=== PATIENT | female | born 1980 | race Hispanic/Latino ===

== ENCOUNTER 2016-10-13 19:22 | Emergency (ER) | payer SELFPAY ==
[2016-10-14] MEDS ORDERED: MOTRIN PO ONE (02:51)
[2016-10-14] MEDS ORDERED: CLEOCIN PO ONE (02:51)
[2016-10-14] MEDS ORDERED: NORCO 5/325 PO ONE ×2 (02:52→04:01)
[2016-10-14] MEDS ORDERED: CLEOCIN IM ONE (02:52)
[2016-10-14] MEDS ORDERED: XYLOCAINE 2% INFILTRATI ONE (02:52)
--- NOTE | 2016-10-14 03:57 | Emergency Department Report ---
HPI - General Chief Complaint: Skin/Abscess/Foreign Body Time Seen by Provider: 10/14/16 02:46 - HPI HPI: 36-year-old female past medical history recurrent abscesses presents with 2-3 days of abscess to right upper lip region. No intraoral involvement denies any fever or chills, no trouble speaking, denies any pus drainage. ED Past Medical Hx - Past Medical History Hx Renal Disease: Yes (Pyelonephritis, hydronephrosis, left kidney/ureteral stone) Hx Arthritis: Yes (hands) Hx Seizures: Yes Hx Psychiatric Treatment: Yes Hx Asthma: Yes (childhood asthma) Additional medical history: Prior kidney infections - Surgical History Additional Surgical History: kidney stent - Social History Smoking Status: Current Every Day Smoker Substance Use Type: Alcohol, Marijuana - Medications Home Medications: Home Medications Medication Instructions Recorded Confirmed Last Taken Type Ciprofloxacin HCl [Cipro] 500 mg PO Q12H #8 tab 10/04/14 Unknown Rx Lactobacillus Acidophil [Lactinex] 1 each PO TID #20 tablet 10/04/14 Unknown Rx oxyCODONE /ACETAMINOPHEN [Percocet 1 tab PO Q6HR PRN #10 tablet 10/04/14 Unknown Rx 5/325] Acetaminophen/Codeine [Tylenol #3] 1 tab PO Q6H PRN #15 tab 08/22/15 Unknown Rx Mupirocin [Bactroban 2%] 1 applic TP TID #1 tube 08/22/15 Unknown Rx Sulfamethoxazole/Trimethoprim 1 each PO BID #20 tablet 08/22/15 Unknown Rx [Bactrim DS TAB] Clindamycin [Clindamycin CAP] 300 mg PO Q6H #28 capsule 10/14/16 Unknown Rx HYDROcodone/APAP 5-325 [[place] 1 each PO Q6HR PRN #15 tablet 10/14/16 Unknown Rx 5/325] Ibuprofen [Motrin] 600 mg PO Q8H PRN #25 tablet 10/14/16 Unknown Rx Mupirocin [Bactroban 2% CREAM] 1 applicatio TP TID #1 cream 10/14/16 Unknown Rx ED Review of Systems ROS: Stated complaint: MOUTH PAIN Other details as noted in HPI Constitutional: denies: chills, fever Eyes: denies: eye pain, eye discharge, vision change ENT: denies: ear pain, throat pain Respiratory: denies: cough, shortness of breath, wheezing Cardiovascular: denies: chest pain, palpitations Endocrine: no symptoms reported Gastrointestinal: denies: abdominal pain, nausea, diarrhea Genitourinary: denies: urgency, dysuria, discharge Musculoskeletal: denies: back pain, joint swelling, arthralgia Skin: denies: rash, lesions Neurological: denies: headache, weakness, paresthesias Psychiatric: denies: anxiety, depression Hematological/Lymphatic: denies: easy bleeding, easy bruising Physical Exam - Physical Exam Vital Signs: Vital Signs 10/13/16 10/14/16 10/14/16 20:43 03:20 03:21 Temperature 98.7 F Pulse Rate 115 H Respiratory 18 18 18 Rate Blood Pressure 107/56 O2 Sat by Pulse 99 Oximetry General: General: appears uncomfortable. Oriented x 3, normal mood and affect . Ambulating without difficulty. Head: Normocephalic, atraumatic, no visible or palpable masses, depressions, or scaring. Eyes: Visual acuity intact, conjunctiva clear, sclera non-icteric, EOM intact, PERRL Ears: EACs clear, TMs translucent & mobile, ossicles nl appearance, hearing intact. Nose: No external lesions, mucosa non-inflamed, septum and turbinates normal Mouth: Small tiny clustered and honey colored blisters suggestive of impetigo and perioral region, small abscess above right lip blow nose next frenulum on right side. Mucous membranes moist, no mucosal lesions. Teeth/Gums: No obvious caries or periodontal disease. No gingival inflammation or significant resorption. Pharynx: Mucosa non-inflamed, no tonsillar hypertrophy or exudate Neck: Supple, without lesions, bruits, or adenopathy, thyroid non-enlarged and non-tender Heart: No cardiomegaly or thrills; regular rate and rhythm, no murmur or gallop Lungs: Clear to auscultation and percussion Abdomen: Bowel sounds normal, no tenderness, organomegaly, masses, or hernia Back: Spine normal without deformity or tenderness, no CVA tenderness Musculoskeletal: Normal gait and station. No misalignment, asymmetry, crepitation, defects, tenderness, masses, effusions, decreased range of motion, instability, atrophy or abnormal strength or tone in the head, neck, spine, ribs , pelvis or extremities. Neurologic: CN 2-12 normal. Sensation to pain, touch, and proprioception normal. DTRs normal in upper and lower extremities. No pathologic reflexes. ED Course Vital Signs 10/13/16 10/14/16 10/14/16 20:43 03:20 03:21 Temperature 98.7 F Pulse Rate 115 H Respiratory 18 18 18 Rate Blood Pressure 107/56 O2 Sat by Pulse 99 Oximetry - I & D Face Blade Size: 11 I & D Procedure: betadine prep Progress: To 3 mL of 2% lidocaine without epinephrine injected near abscess site above the right lip. Does not cross the vermilion border. Small vertical incision made next right frenulum, small amount of pus drained from site no gauze placed minimal bleeding. Painful to patient, minor relief of pressure. ED Medical Decision Making - Medical Decision Making A/P: Facial abscess 1-clindamycin IM times one dose, will give seven-day course 2-Motrin and [place] for pain 3-topical bactroban to impetigo lesions 4-patient advised to return to ED if swelling worsens and if it extends into any other part of the face, she developed severe fever or chills Critical care attestation.: If time is entered above; I have spent that time in minutes in the direct care of this critically ill patient, excluding procedure time. ED Disposition Clinical Impression: Impetigo, Facial abscess Disposition: DISCHARGED TO HOME OR SELFCARE Is pt being admited?: No Does the pt Need Aspirin: No Condition: Stable Instructions: Abscess (ED), Incision and Drainage (ED), Acute Wound Care (ED), Abscess Incision and Drainage (ED) Prescriptions: Mupirocin [Bactroban 2% CREAM] 1 applicatio TP TID #1 cream Clindamycin [Clindamycin CAP] 300 mg PO Q6H #28 capsule Ibuprofen [Motrin] 600 mg PO Q8H PRN #25 tablet PRN Reason: Pain HYDROcodone/APAP 5-325 [[place] 5/325] 1 each PO Q6HR PRN #15 tablet PRN Reason: Pain Referrals: PRIMARY CARE,MD [Primary Care Provider] - 3-5 Days [facility] [Outside] - 3-5 Days Forms: Work/School Release Form(ED), Accompanied Note Time of Disposition: 03:58
[2016-10-14] MEDS ORDERED: TRIPLE ANTIBIOTIC TP ONE ×3 (04:14→05:57)
[2016-10-14 05:06] VITALS: BP 116/74
== END 2016-10-14 05:06 | disposition home or self-care (01) ==
LOC: ED 19:22
DX: L02.01 Cutaneous abscess of face (principal); L01.00 Impetigo, unspecified; M19.90 Unspecified osteoarthritis, unspecified site; J45.909 Unspecified asthma, uncomplicated; F17.200 Nicotine dependence, unspecified, uncomplicated; F12.90 Cannabis use, unspecified, uncomplicated
CPT/HCPCS: 96372; A6250

== ENCOUNTER 2018-12-24 19:05 | Emergency (ER) | payer OTHER ==
[2018-12-24 19:36] VITALS: BP 143/93
--- NOTE | 2018-12-24 21:22 | XRay Report ---
PROCEDURE: XR FOOT 2V LT TECHNIQUE: Frontal and lateral views left foot HISTORY: Swollen left great toe with froeign body. COMPARISONS: None FINDINGS: There is no evidence of fracture or subluxation. The joint spaces are maintained. There is no evidence of radiopaque foreign body. IMPRESSION: 1. No evidence of fracture or subluxation. 2. No evidence of radiopaque foreign body. This document is electronically signed by Kaylin Monge MD., December 24 2018 09:20:16 PM ET
[2018-12-24] MEDS ORDERED: XYLOCAINE 2% INFILTRATI STA (23:42)
[2018-12-24] MEDS ORDERED: BOOSTRIX IM ONE (23:42)
--- NOTE | 2018-12-25 01:09 | Emergency Department Report ---
ED Lower Extremity HPI - General Chief Complaint: Extremity Injury, Lower Stated Complaint: FOREIGN BODY IN LEFT TOE Time Seen by Provider: 12/24/18 23:40 Source: patient Mode of arrival: Ambulatory Limitations: No Limitations - History of Present Illness MD Complaint: foot injury -: days(s) (1) Injury: Toes: Left Type of Injury: puncture wound (accidentally stepped on a toothpick while at home, but it broke off in the toe presents emerge department for removal. Complains of pain and swelling and occasional) Severity: mild Improves With: nothing Worsens With: movement, palpation Context: walking Associated Symptoms: able to partially bear weight - Related Data Previous Rx's Medication Instructions Recorded Last Taken Type Ciprofloxacin HCl [Cipro] 500 mg PO Q12H #8 tab 10/04/14 Unknown Rx Lactobacillus Acidophil [Lactinex] 1 each PO TID #20 tablet 10/04/14 Unknown Rx oxyCODONE /ACETAMINOPHEN [Percocet 1 tab PO Q6HR PRN #10 tablet 10/04/14 Unknown Rx 5/325] Acetaminophen/Codeine [Tylenol #3] 1 tab PO Q6H PRN #15 tab 08/22/15 Unknown Rx Mupirocin [Bactroban 2%] 1 applic TP TID #1 tube 08/22/15 Unknown Rx Sulfamethoxazole/Trimethoprim 1 each PO BID #20 tablet 08/22/15 Unknown Rx [Bactrim DS TAB] Clindamycin [Clindamycin CAP] 300 mg PO Q6H #28 capsule 10/14/16 Unknown Rx HYDROcodone/APAP 5-325 [[place] 1 each PO Q6HR PRN #15 tablet 10/14/16 Unknown Rx 5/325] Ibuprofen [Motrin] 600 mg PO Q8H PRN #25 tablet 10/14/16 Unknown Rx Mupirocin [Bactroban 2% CREAM] 1 applicatio TP TID #1 cream 10/14/16 Unknown Rx Chlorhexidine Gluconate 5 ml TP BID #240 liquid 12/25/18 Unknown Rx [Antiseptic Skin Cleanser] Sulfamethoxazole/Trimethoprim 1 each PO BID #14 tablet 12/25/18 Unknown Rx [Bactrim DS TAB] Allergies Allergy/AdvReac Type Severity Reaction Status Date / Time No Known Allergies Allergy Unverified 09/29/14 19:48 ED Review of Systems ROS: Stated complaint: FOREIGN BODY IN LEFT TOE Other details as noted in HPI Constitutional: denies: chills, fever Eyes: denies: eye pain, eye discharge, vision change ENT: denies: ear pain, throat pain Respiratory: denies: cough, shortness of breath, wheezing Cardiovascular: denies: chest pain, palpitations Endocrine: no symptoms reported Gastrointestinal: denies: abdominal pain, nausea, diarrhea Genitourinary: denies: urgency, dysuria, discharge Musculoskeletal: denies: back pain, joint swelling, arthralgia Skin: change in color. denies: rash, lesions Neurological: denies: headache, weakness, paresthesias Psychiatric: denies: anxiety, depression Hematological/Lymphatic: denies: easy bleeding, easy bruising ED Past Medical Hx - Past Medical History Hx Renal Disease: Yes (Pyelonephritis, hydronephrosis, left kidney/ureteral stone) Hx Arthritis: Yes (hands) Hx Seizures: Yes Hx Psychiatric Treatment: Yes Hx Asthma: Yes (childhood asthma) Additional medical history: Prior kidney infections - Surgical History Additional Surgical History: kidney stent - Social History Smoking Status: Current Every Day Smoker Substance Use Type: Marijuana - Medications Home Medications: Home Medications Medication Instructions Recorded Confirmed Last Taken Type Ciprofloxacin HCl [Cipro] 500 mg PO Q12H #8 tab 10/04/14 Unknown Rx Lactobacillus Acidophil [Lactinex] 1 each PO TID #20 tablet 10/04/14 Unknown Rx oxyCODONE /ACETAMINOPHEN [Percocet 1 tab PO Q6HR PRN #10 tablet 10/04/14 Unknown Rx 5/325] Acetaminophen/Codeine [Tylenol #3] 1 tab PO Q6H PRN #15 tab 08/22/15 Unknown Rx Mupirocin [Bactroban 2%] 1 applic TP TID #1 tube 08/22/15 Unknown Rx Sulfamethoxazole/Trimethoprim 1 each PO BID #20 tablet 08/22/15 Unknown Rx [Bactrim DS TAB] Clindamycin [Clindamycin CAP] 300 mg PO Q6H #28 capsule 10/14/16 Unknown Rx HYDROcodone/APAP 5-325 [[place] 1 each PO Q6HR PRN #15 tablet 10/14/16 Unknown Rx 5/325] Ibuprofen [Motrin] 600 mg PO Q8H PRN #25 tablet 10/14/16 Unknown Rx Mupirocin [Bactroban 2% CREAM] 1 applicatio TP TID #1 cream 10/14/16 Unknown Rx Chlorhexidine Gluconate 5 ml TP BID #240 liquid 12/25/18 Unknown Rx [Antiseptic Skin Cleanser] Sulfamethoxazole/Trimethoprim 1 each PO BID #14 tablet 12/25/18 Unknown Rx [Bactrim DS TAB] ED Physical Exam - General Limitations: No Limitations General appearance: alert, in no apparent distress - Head Head exam: Present: atraumatic, normocephalic - Eye Eye exam: Present: normal appearance, PERRL, EOMI Pupils: Present: normal accommodation - ENT ENT exam: Present: normal exam, normal orophraynx, mucous membranes moist - Neck Neck exam: Present: normal inspection, full ROM. Absent: tenderness, lymphadenopathy - Respiratory Respiratory exam: Present: normal lung sounds bilaterally. Absent: respiratory distress, wheezes, rales, chest wall tenderness, accessory muscle use, decreased breath sounds - Cardiovascular Cardiovascular Exam: Present: regular rate, normal rhythm. Absent: systolic murmur, diastolic murmur, rubs, gallop - GI/Abdominal GI/Abdominal exam: Present: soft, normal bowel sounds. Absent: distended, tenderness, hyperactive bowel sounds, hypoactive bowel sounds, organomegaly, bruit - Extremities Exam Extremities exam: Present: normal inspection, full ROM, normal capillary refill. Absent: pedal edema - Back Exam Back exam: Present: normal inspection, full ROM, CVA tenderness (R), CVA tenderness (L). Absent: paraspinal tenderness - Neurological Exam Neurological exam: Present: alert, oriented X3, CN II-XII intact, normal gait. Absent: abnormal gait, motor sensory deficit, reflexes normal - Psychiatric Psychiatric exam: Present: normal affect, normal mood. Absent: depressed, agitated, anxious, flat affect, manic - Skin Skin exam: Present: warm, dry, intact, normal color. Absent: rash ED Course Vital Signs 12/24/18 12/24/18 19:32 19:34 Temperature 98.2 F 98.2 F Pulse Rate 89 87 Respiratory 18 18 Rate Blood Pressure 143/93 O2 Sat by Pulse 99 100 Oximetry - Procedure Description Procedures done: Prepped and draped in sterile fashion anesthesia was achieved with 2% lidocaine with no epinephrine 3 and males a 15 blade was used to make a 1 less than 1 cm incision over the believe insertion site [place] because was used to remove a toothpick that was 1.5 cm in length and intact. No poste xtraction debris. Critical care attestation.: If time is entered above; I have spent that time in minutes in the direct care of this critically ill patient, excluding procedure time. ED Disposition Clinical Impression: Foreign body foot/toe Disposition: - TO HOME OR SELFCARE Is pt being admited?: No Does the pt Need Aspirin: No Condition: Stable Instructions: Acute Wound Care (ED), Puncture Wound (ED), Soft Tissue Foreign Body (ED) Prescriptions: Chlorhexidine Gluconate [Antiseptic Skin Cleanser] 5 ml TP BID #240 liquid Sulfamethoxazole/Trimethoprim [Bactrim DS TAB] 1 each PO BID #14 tablet Referrals: NIDIA PALOMARES MD [Primary Care Provider] - 3-5 Days
[2018-12-25] MEDS ORDERED: IBUPROFEN ONE (01:16)
[2018-12-25] MEDS ORDERED: IBUPROFEN PO ONE (01:16)
== END 2018-12-25 01:29 | disposition home or self-care (01) ==
LOC: ED 19:05
DX: S90.455A Superficial foreign body, left lesser toe(s), initial encounter (principal); J45.909 Unspecified asthma, uncomplicated; F17.200 Nicotine dependence, unspecified, uncomplicated; W45.8XXA Other foreign body or object entering through skin, initial encounter; Y93.89 Activity, other specified; Y92.89 Other specified places as the place of occurrence of the external cause; Y99.8 Other external cause status
CPT/HCPCS: 90471; 90715

== ENCOUNTER 2020-04-04 14:16 | Inpatient (IN) | payer OTHER ==
[2020-04-04] MEDS ORDERED: DEXTROSE 50% IN WATER (25GM) 50 ML SYRINGE IV ONE ×3 (14:20→14:46)
[2020-04-04] MEDS ORDERED: ETOMIDATE 20 MG/10 ML INJ IV ONE (14:29)
[2020-04-04] MEDS ORDERED: ROCURONIUM 50 MG/5 ML INJ IV ONE ×2 (14:30→14:34)
[2020-04-04] MEDS ORDERED: SODIUM CHLORIDE 0.9% 1000 ML 1,000 ML ONE ×2 (14:33→20:20)
[2020-04-04] MEDS ORDERED: LIP THERAPY VASELINE TP PRN (14:43)
[2020-04-04] MEDS ORDERED: MINERAL OIL/PETROLATUM, WHITE OPHTH OINT 3.5 GM OU PRN (14:43)
[2020-04-04] MEDS ORDERED: SODIUM CHLORIDE 0.9% 1000 ML 1,000 ML IV ONE ×3 (14:47→16:20)
[2020-04-04] MEDS ORDERED: levETIRAcetam 1000 MG/NS 0.75% 1,000 MG/100 ML BAG IV ONE (14:47)
--- NOTE | 2020-04-04 14:50 | Emergency Department Report ---
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 improvement after ventilation. Patient has elevated ammonia level and UDS positive for methamphetamine. CT head and cervical spine unremarkable. Patient has a lactic acidosis and was empirically treated with Zosyn and 3 L of normal saline (greater than 30ml/kg bolus weight was not in during initial orders therefore sepsis protocol order for IVF not used initially). Pleural effusions noted on chest x-ray as per radiology report. Patient presented with hypothermia and hypoglycemia. Active warming initiated and patient received 2 Amps of D50 on arrival. Repeat Accu-Chek revealed glucose within normal range. Patient will need to be admitted to the ICU for continued care. Critical Care Time: Yes Critical care time in (mins) excluding proc time.: 35 Critical care attestation.: If time is entered above; I have spent that time in minutes in the direct care of this critically ill patient, excluding procedure time. ED Disposition Clinical Impression: Altered mental status, Serum ammonia increased, Methamphetamine abuse, Respiratory acidosis, Endotracheally intubated, Seizure disorder, Hypothermia, Hypoglycemia Disposition: OP ADMIT IP TO THIS HOSP Is pt being admited?: Yes Condition: Stable Time of Disposition: 17:25 (Dr Hernandez/hosp)
--- NOTE | 2020-04-04 15:10 | Cat Scan Report ---
CT head without contrast INDICATION : MAIN. Acute headache TECHNIQUE: Axial imaging performed from the skull apex through the skull base without the use of con trast. All CT scans at this location are performed using CT dose reduction for ALARA by means of aut omated exposure control. COMPARISON: None FINDINGS: Parenchyma: No acute intracranial hemorrhage or parenchymal abnormality. Ventricles: Ventricles are normal in size and appear symmetric. Soft tissues: Soft tissues including the orbits appear normal. Bones: No acute osseous abnormality. Sinuses: Sinuses and mastoid air cells are clear. IMPRESSION: No acute abnormality. Signer Name: Raúl Wheeler MD Signed: 04/04/2020 3:05 PM Workstation Name: [id number]
[2020-04-04 15:30] LABS: Bacteria,Urine 1+ /HPF (Negative); Bilirubin,Urine NEG (Negative); Blood,Urine SM (Negative); Color,Urine Straw (Yellow); Mucus,Urine FEW /HPF; Protein,Urine <15 mg/dL mg/dL (Negative); Urobilinogen,Urine < 2.0 mg/dL (<2.0)
[2020-04-04 15:34] LABS: Benzodiazepines Screen,Urine PRESUMPTIVE NEGATIVE; Cannabinoid Screen,Urine PRESUMPTIVE NEGATIVE; Cocaine Screen,Urine PRESUMPTIVE NEGATIVE; Methadone Screen,Urine PRESUMPTIVE NEGATIVE; Opiate Screen,Urine PRESUMPTIVE NEGATIVE
--- NOTE | 2020-04-04 15:41 | Cat Scan Report ---
CT cervical spine wo con INDICATION / CLINICAL INFORMATION: 40 years Female; ams, found down on floor. TECHNIQUE: Axial CT images of the cervical spine were obtained. Sagittal and coronal reformatted images were pr oduced. All CT scans at this location are performed using CT dose reduction for ALARA by means of aut omated exposure control. COMPARISON: None available. FINDINGS: POST-SURGICAL CHANGES: The patient is intubated. There are secretions in the nasopharynx. ALIGNMENT: Normal cervical lordosis seen without significant scoliosis. VERTEBRAE: No signs of fracture. Vertebral bodies are grossly normal in height throughout. There is mild foraminal narrowing on the right at C5-6 from uncinate hypertrophy. INTRAVERTEBRAL DISCS:Disc spaces are fairly well-maintained throughout without significant canal sten osis. PARASPINAL SOFT TISSUES: No significant abnormality. ADDITIONAL FINDINGS: None. IMPRESSION: 1. No signs of acute bony trauma to the cervical spine. Signer Name: Joe Estrada MD, III Signed: 04/04/2020 3:36 PM Workstation Name: [id number]
[2020-04-04 15:47] LABS: Amphetamine Screen,Urine PRESUMPTIVE POSITIVE
[2020-04-04 15:52] LABS: Basophils # (Auto) 0.1 K/mm3 (0.0-0.1); Basophils % (Auto) 0.4 % (0.0-1.8); Eosinophils % (Auto) 0.1 % (0.0-4.3); Hematocrit 39.1 % (30.3-42.9); Hemoglobin 12.8 gm/dl (10.1-14.3); Lymphocytes # (Auto) 0.6 K/mm3 (1.2-5.4); Lymphocytes % (Auto) 4.5 % (13.4-35.0); Mean Corpuscular HGB Conc 33 % (30-34); Mean Corpuscular Volume 87 fl (79-97); Monocytes # (Auto) 0.8 K/mm3 (0.0-0.8); Monocytes % (Auto) 5.4 % (0.0-7.3); Platelet Count 218 K/mm3 (140-440)
[2020-04-04 16:01] LABS: Creatine Kinase MB 9.8 ng/mL (0.0-4.0)
[2020-04-04 16:09] LABS: Albumin 3.8 g/dL (3.9-5); Calcium 8.3 mg/dL (8.4-10.2)
[2020-04-04 16:12] LABS: Free T4 (Free Thyroxine) 1.01 ng/dL (0.76-1.46)
[2020-04-04 16:14] LABS: INR 1.05 (0.87-1.13)
[2020-04-04 16:24] LABS: ABG Base Excess -3.6 mmol/L (-2.0-3.0); ABG HCO3 23.1 mmol/L (20.0-26.0); ABG Methemoglobin 0.6 % (0.0-1.5); ABG Oxygen Saturation 96.6 % (95.0-99.0); ABG PCO2 48.6 mm Hg; ABG PH 7.295 pH Units (7.350-7.450); ABG PO2 87.3 mm Hg (80.0-90.0)
--- NOTE | 2020-04-04 16:37 | XRay Report ---
CHEST 1 VIEW 04/04/2020 3:28 PM INDICATION / CLINICAL INFORMATION: ETT placement. COMPARISON: None FINDINGS: SUPPORT DEVICES: ET tube has tip 3 cm above hamlet HEART / MEDIASTINUM: No significant abnormality. LUNGS / PLEURA: Small bilateral layering pleural effusions. No pneumothorax. ADDITIONAL FINDINGS: No significant additional findings. IMPRESSION: 1. Small bilateral pleural effusions Signer Name: John Cordon MD Signed: 04/04/2020 4:33 PM Workstation Name: [id number]
[2020-04-04] MEDS ORDERED: PIPERACIL/TAZOBACTA 4.5/NS 100 4.5 GM/100 ML VIAL IV ONE (16:41)
--- NOTE | 2020-04-04 17:14 | History and Physical Report ---
History of Present Illness Chief complaint: Unresponsive History of present illness: 40 YO Female with CKD, Seizures, Asthma, Psychosis NOS, Nicotine Dependence presents to ED for evaluation. Patient is intubated and on ventilatory support at the time of my evaluation and is unable to provide history. Patient history taken from ED staff, EMS, and patient boyfriend who was on scene at the time. As per staff the patient was found by her boyfriend lying on the floor unresponsive. EMS was notified and upon arrival the patient was found to be in distress and subsequently transported to [facility] for further evaluation and care. Patient seen and evaluated in the emergency department. Lab and imaging studies reviewed. Patient was found to be hypoxemic and unable to protect her airway with clinical symptoms suggestive of acute respiratory failure and the patient was subsequently intubated and placed on ventilatory support. The patient was also found to have sepsis with blood pressure of 73/48, acute kidney injury, metabolic acidosis, as well as metabolic encephalopathy. The patient was initiated on sepsis protocol and admitted to ICU due to high risk for cardiopulmonary decompensation. Critical care team consulted in ED. Prior admission on 09/30/2014 reviewed. All medication listed at time of admission has been reconciled. No further history is obtainable. Past History Past Medical History: other (See HPI) Past Surgical History: Other (Renal stent placement) Social history: , smoking. denies: alcohol abuse, prescription drug abuse Family history: no significant family history, other (Reviewed) Medications and Allergies Allergies Allergy/AdvReac Type Severity Reaction Status Date / Time No Known Allergies Allergy Unverified 09/29/14 19:48 Home Medications Medication Instructions Recorded Confirmed Last Taken Type Ciprofloxacin HCl [Cipro] 500 mg PO Q12H #8 tab 10/04/14 Unknown Rx Lactobacillus Acidophil [Lactinex] 1 each PO TID #20 tablet 10/04/14 Unknown Rx oxyCODONE /ACETAMINOPHEN [Percocet 1 tab PO Q6HR PRN #10 tablet 10/04/14 Unknown Rx 5/325] Acetaminophen/Codeine [Tylenol #3] 1 tab PO Q6H PRN #15 tab 08/22/15 Unknown Rx Mupirocin [Bactroban 2%] 1 applic TP TID #1 tube 08/22/15 Unknown Rx Sulfamethoxazole/Trimethoprim 1 each PO BID #20 tablet 08/22/15 Unknown Rx [Bactrim DS TAB] Clindamycin [Clindamycin CAP] 300 mg PO Q6H #28 capsule 10/14/16 Unknown Rx HYDROcodone/APAP 5-325 [[place] 1 each PO Q6HR PRN #15 tablet 10/14/16 Unknown Rx 5/325] Ibuprofen [Motrin] 600 mg PO Q8H PRN #25 tablet 10/14/16 Unknown Rx Mupirocin [Bactroban 2% CREAM] 1 applicatio TP TID #1 cream 10/14/16 Unknown Rx Chlorhexidine Gluconate 5 ml TP BID #240 liquid 12/25/18 Unknown Rx [Antiseptic Skin Cleanser] Ketorolac [Toradol] 10 mg PO Q6H PRN #15 tablet 12/25/18 Unknown Rx Sulfamethoxazole/Trimethoprim 1 each PO BID #14 tablet 12/25/18 Unknown Rx [Bactrim DS TAB] Active Meds: Active Medications Hydrophilic Ointment (Vaseline Lip Therapy) 1 applic TP Q2HR PRN PRN Reason: Dry Lips Propofol (Diprivan 10 Mg/Ml) 1,000 mg in 100 mls @ 0 mls/hr IV TITR LEOBARDO; Protocol Sodium Chloride (Nacl 0.9% 1000 Ml) 1,000 mls @ 999 mls/hr IV BOLUS ONE Stop: 04/04/20 17:20 Last Admin: 04/04/20 16:45 Dose: 999 mls/hr Documented by: Sodium Chloride (Nacl 0.9% 1000 Ml) 1,000 mls @ 999 mls/hr IV BOLUS ONE Stop: 04/04/20 17:20 Last Admin: 04/04/20 16:46 Dose: 999 mls/hr Documented by: Multi-Ingred Cream/Lotion/Oil/Oint (Artificial Tears Ophth Oint) 1 applic OU Q4HR PRN PRN Reason: Dry Eye(s) Review of Systems ROS unobtainable: due to endotracheal tube, due to mental status Exam - Constitutional Vitals: Temp Pulse Resp BP Pulse Ox 89.0 F L 65 20 120/87 100 04/04/20 14:48 04/04/20 16:46 04/04/20 16:46 04/04/20 16:46 04/04/20 16:46 General appearance: Present: severe distress - EENT Eyes: Present: miosis - Respiratory Respiratory effort: labored, accessory muscle use, stridor Respiratory: bilateral: diminished, rhonchi - Cardiovascular Heart Sounds: Present: S1 & S2. Absent: rub, click Peripheral Pulses: abnormal (Capillary refill greater than 3.5 seconds) - Abdominal General gastrointestinal: Present: soft, non-tender, non-distended, normal bowel sounds Female genitourinary: Present: normal - Integumentary Integumentary: Present: clear, dry, clammy, decreased turgor - Musculoskeletal Musculoskeletal: generalized weakness - Psychiatric Psychiatric: no appropriate mood/affect, no intact judgment & insight, no memory intact - Neurologic Neurologic: no focal deficits, moves all extremities, no gait normal HEART Score - HEART Score Troponin: Troponin T 0.021 ng/mL (0.00-0.029) 04/04/20 15:34 Results - Labs CBC & Chem 7: 04/04/20 15:34 04/04/20 15:34 Labs: Abnormal lab results 04/04/20 04/04/20 04/04/20 Range/Units 15:34 15:34 15:34 WBC 14.2 H (4.5-11.0) K/mm3 RDW 18.0 H (13.2-15.2) % Lymph % (Auto) 4.5 L (13.4-35.0) % Lymph # 0.6 L (1.2-5.4) K/mm3 Seg Neutrophils % 89.6 H (40.0-70.0) % Seg Neutrophils # 12.7 H (1.8-7.7) K/mm3 ABG pH (7.350-7.450) pH Units ABG Base Excess (-2.0-3.0) mmol/L VBG pH (7.320-7.420) Oxyhemoglobin (95.0-99.0) % Carbon Dioxide 20 L (22-30) mmol/L Creatinine 1.4 H (0.7-1.2) mg/dL Glucose 186 H (65-100) mg/dL POC Glucose (70-105) Lactic Acid 5.90 H* (0.7-2.0) mmol/L Calcium 8.3 L (8.4-10.2) mg/dL Ammonia (25-60) umol/L Total Creatine Kinase (30-135) units/L CK-MB (CK-2) (0.0-4.0) ng/mL Albumin 3.8 L (3.9-5) g/dL Salicylates (2.8-20.0) mg/dL Acetaminophen (10.0-30.0) ug/mL Phenytoin (10.0-20.0) ug/mL Valproic Acid (50-100) ug/mL 04/04/20 04/04/20 04/04/20 Range/Units 15:34 15:34 15:34 WBC (4.5-11.0) K/mm3 RDW (13.2-15.2) % Lymph % (Auto) (13.4-35.0) % Lymph # (1.2-5.4) K/mm3 Seg Neutrophils % (40.0-70.0) % Seg Neutrophils # (1.8-7.7) K/mm3 ABG pH (7.350-7.450) pH Units ABG Base Excess (-2.0-3.0) mmol/L VBG pH 7.135 L* (7.320-7.420) Oxyhemoglobin (95.0-99.0) % Carbon Dioxide (22-30) mmol/L Creatinine (0.7-1.2) mg/dL Glucose (65-100) mg/dL POC Glucose (70-105) Lactic Acid (0.7-2.0) mmol/L Calcium (8.4-10.2) mg/dL Ammonia 142.0 H (25-60) umol/L Total Creatine Kinase 273 H (30-135) units/L CK-MB (CK-2) 9.8 H (0.0-4.0) ng/mL Albumin (3.9-5) g/dL Salicylates (2.8-20.0) mg/dL Acetaminophen (10.0-30.0) ug/mL Phenytoin (10.0-20.0) ug/mL Valproic Acid (50-100) ug/mL 04/04/20 04/04/20 04/04/20 Range/Units 15:34 15:34 16:10 WBC (4.5-11.0) K/mm3 RDW (13.2-15.2) % Lymph % (Auto) (13.4-35.0) % Lymph # (1.2-5.4) K/mm3 Seg Neutrophils % (40.0-70.0) % Seg Neutrophils # (1.8-7.7) K/mm3 ABG pH 7.295 L (7.350-7.450) pH Units ABG Base Excess -3.6 L (-2.0-3.0) mmol/L VBG pH (7.320-7.420) Oxyhemoglobin 92.7 L (95.0-99.0) % Carbon Dioxide (22-30) mmol/L Creatinine (0.7-1.2) mg/dL Glucose (65-100) mg/dL POC Glucose (70-105) Lactic Acid (0.7-2.0) mmol/L Calcium (8.4-10.2) mg/dL Ammonia (25-60) umol/L Total Creatine Kinase (30-135) units/L CK-MB (CK-2) (0.0-4.0) ng/mL Albumin (3.9-5) g/dL Salicylates < 0.3 L (2.8-20.0) mg/dL Acetaminophen < 5.0 L (10.0-30.0) ug/mL Phenytoin 0.8 L (10.0-20.0) ug/mL Valproic Acid < 2.8 L (50-100) ug/mL 04/04/20 Range/Units 16:13 WBC (4.5-11.0) K/mm3 RDW (13.2-15.2) % Lymph % (Auto) (13.4-35.0) % Lymph # (1.2-5.4) K/mm3 Seg Neutrophils % (40.0-70.0) % Seg Neutrophils # (1.8-7.7) K/mm3 ABG pH (7.350-7.450) pH Units ABG Base Excess (-2.0-3.0) mmol/L VBG pH (7.320-7.420) Oxyhemoglobin (95.0-99.0) % Carbon Dioxide (22-30) mmol/L Creatinine (0.7-1.2) mg/dL Glucose (65-100) mg/dL POC Glucose 125 H (70-105) Lactic Acid (0.7-2.0) mmol/L Calcium (8.4-10.2) mg/dL Ammonia (25-60) umol/L Total Creatine Kinase (30-135) units/L CK-MB (CK-2) (0.0-4.0) ng/mL Albumin (3.9-5) g/dL Salicylates (2.8-20.0) mg/dL Acetaminophen (10.0-30.0) ug/mL Phenytoin (10.0-20.0) ug/mL Valproic Acid (50-100) ug/mL Assessment and Plan - Patient Problems (1) Sepsis Current Visit: Yes Status: Acute Plan to address problem: Sepsis protocol: CBC, CMP, urinalysis, chest x-ray, IV fluid resuscitation therapy, IV antibiotic therapy, maintain mean arterial blood pressure greater than or equal to 65, monitor urine output every shift, supportive care, critical care team consulted in ED. The high probability of a clinically significant, sudden or life threatening deterioration of the [cardiac, pulmonary, renal, neuro, ID] system(s) required my full and direct attention, intervention and personal management. The aggregate critical care time was [95] minutes. This time is in addition to time spent performing reported procedures but includes the following: [x] Data Review and interpretation [x] Patient assessment and monitoring of vital signs [x] Documentation [x] Medication orders and management (2) Acute respiratory failure Current Visit: Yes Status: Acute Qualifiers: Respiratory failure complication: hypoxia Qualified Code(s): J96.01 - Acute respiratory failure with hypoxia Plan to address problem: Patient intubated and on vent support. Chest x-ray, ABG, pulse oximetry, nebulizer therapy, wean vent as tolerated, daily spontaneous breathing trial, sedation holiday, critical care team consulted in ED (3) Acute kidney injury (RON) with acute tubular necrosis (ATN) Current Visit: Yes Status: Acute Plan to address problem: IV fluid resuscitation therapy, monitor urine output every shift, supportive care. (4) Nicotine dependence Current Visit: Yes Status: Acute Qualifiers: Nicotine product type: cigarettes Substance use status: in withdrawal Qualified Code(s): F17.213 - Nicotine dependence, cigarettes, with withdrawal Plan to address problem: Smoking cessation, supportive care. (5) Methamphetamine abuse Current Visit: Yes Status: Acute Plan to address problem: Chronic, supportive care, outpatient drug dependence counseling. (6) Seizure disorder Current Visit: Yes Status: Acute Plan to address problem: Seizure precautions, supportive care, continue antiepileptic therapy. (7) Metabolic acidosis Current Visit: Yes Status: Acute Plan to address problem: BMP, supportive care, treat sepsis, IV bicarbonate therapy, repeat BMP in a.m. (8) DVT prophylaxis Current Visit: No Status: Acute Plan to address problem: SCD to bilateral lower extremities while in bed, prophylactic heparin.
[2020-04-04] MEDS ORDERED: SODIUM CHLORIDE 0.9% 1000 ML IV SOLN IV ONE (17:30)
[2020-04-04] MEDS ORDERED: SODIUM BICARB 8.4% 50 MEQ/50 ML SYRINGE IV ONE (19:00)
[2020-04-04] MEDS ORDERED: MUPIROCIN TP SCH (20:00)
[2020-04-04] MEDS ORDERED: fentaNYL DRIP Premix 2,000 MCG/100 ML BAG IV ONE (20:16)
[2020-04-04] MEDS ORDERED: fentaNYL 100 MCG/2 ML INJ IV PRN (20:26)
[2020-04-04] MEDS: fentaNYL DRIP Premix 2,000 MCG/100 ML BAG IV SCH (20:30)
[2020-04-04] MEDS: LACTINEX CHEW TAB PO SCH (21:22)
[2020-04-04] MEDS: HEPARIN 5,000 UNIT/1 ML VIAL SUB-Q SCH (21:30)
[2020-04-04] MEDS ORDERED: CHLORHEXIDINE GLUCONATE TP SCH (22:00)
[2020-04-05] MEDS: fentaNYL DRIP Premix 2,000 MCG/100 ML BAG IV SCH ×2 (00:54→07:29)
--- NOTE | 2020-04-05 04:59 | XRay Report ---
CHEST 1 VIEW INDICATION: follow up respiratory failure COMPARISON: One day prior. FINDINGS: Support devices: Endotracheal tube remains in good position. Heart: Stable. Lungs/Pleura: Bibasilar disease persists but has improved. No new disease. IMPRESSION: 1. Slight improvement. Signer Name: Cal Tillman MD Signed: 04/05/2020 4:55 AM Workstation Name: [id number]
[2020-04-05 05:05] LABS: ABG Base Excess -3.4 mmol/L (-2.0-3.0); ABG HCO3 21.3 mmol/L (20.0-26.0); ABG Methemoglobin 0.6 % (0.0-1.5); ABG Oxygen Saturation 98.4 % (95.0-99.0); ABG PH 7.379 pH Units (7.350-7.450); ABG PO2 126.6 mm Hg (80.0-90.0)
[2020-04-05] MEDS ORDERED: D5W/0.9% NACL 1,000 ML IV SCH (10:00)
[2020-04-05] MEDS: FAMOTIDINE 20 MG/2 ML INJ IV SCH ×2 (10:01→22:51)
[2020-04-05] MEDS: HEPARIN 5,000 UNIT/1 ML VIAL SUB-Q SCH ×2 (10:01→22:51)
[2020-04-05] MEDS: LACTINEX CHEW TAB PO SCH ×3 (10:36→22:50)
[2020-04-05 10:53] LABS: Hematocrit 36.1 % (30.3-42.9); Hemoglobin 11.9 gm/dl (10.1-14.3); Mean Corpuscular HGB Conc 33 % (30-34); Mean Corpuscular Volume 84 fl (79-97); Platelet Count 217 K/mm3 (140-440); Red Blood Count 4.31 M/mm3 (3.65-5.03); Red Cell Distribution Width 17.1 % (13.2-15.2)
[2020-04-05 11:14] LABS: BUN/Creatinine Ratio 19; Blood Urea Nitrogen 17 mg/dL (7-17); Hemolysis Index 10
[2020-04-05] MEDS ORDERED: PNEUMOCOCCAL 23 Valent 0.5 ML VIAL IM ONE (12:00)
[2020-04-05] MEDS ORDERED: SIMPLE SYRUP 15 ML FEEDTUBE PRN ×2 (12:32)
[2020-04-05] MEDS ORDERED: LIPASE 10,500/PROTEASE 25,000/AMYLASE 43,750 (UNITS) DR CAP FEEDTUBE PRN (12:32)
[2020-04-05] MEDS ORDERED: SODIUM BICARBONATE 325 MG TAB FEEDTUBE PRN (12:32)
--- NOTE | 2020-04-05 12:35 | Consultation ---
History of Present Illness Consult date: 04/05/20 Requesting physician: FAIZA DICKINSON Reason for consult: other (Critical care management) History of present illness: 40 YO Female with CKD, Seizures, Asthma, Psychosis NOS, Nicotine Dependence presents to ED for evaluation. Patient is intubated and on ventilatory support at the time of my evaluation and is unable to provide history. As per medical records the patient was found by her boyfriend lying on the floor unresponsive. EMS was notified and upon arrival the patient was found to be in distress and subsequently transported to [facility] for further evaluation and care. Patient seen and evaluated in the emergency department. Lab and imaging studies reviewed. Patient was found to be hypoxemic and unable to protect her airway with clinical symptoms suggestive of acute respiratory failure and the patient was subsequently intubated and placed on ventilatory support. The patient was also found to have sepsis with blood pressure of 73/48, acute kidney injury, metabolic acidosis, as well as metabolic encephalopathy. The patient was initiated on sepsis protocol and admitted to ICU due to high risk for cardiopulmonary decompensation. I was consulted fro critical care management. Thank you Past History Past Medical History: other (See HPI) Past Surgical History: Other (Renal stent placement) Social history: , smoking. denies: alcohol abuse, prescription drug abuse Family history: no significant family history, other (Reviewed) Medications and Allergies Allergies Allergy/AdvReac Type Severity Reaction Status Date / Time No Known Allergies Allergy Unverified 09/29/14 19:48 Home Medications Medication Instructions Recorded Confirmed Last Taken Type No Known Home Medications [No 04/05/20 04/05/20 Unknown History Reported Home Medications] Active Meds: Active Medications Famotidine (Pepcid) 20 mg IV BID LEOBARDO Last Admin: 04/05/20 10:01 Dose: 20 mg Documented by: Fentanyl (Sublimaze) 50 mcg IV Q10MIN PRN PRN Reason: ANALGESIA Heparin Sodium (Porcine) (Heparin) 5,000 unit SUB-Q Q12HR [facility] Last Admin: 04/05/20 10:01 Dose: 5,000 unit Documented by: Hydrophilic Ointment (Vaseline Lip Therapy) 1 applic TP Q2HR PRN PRN Reason: Dry Lips Propofol (Diprivan 10 Mg/Ml) 1,000 mg in 100 mls @ 2.517 mls/hr IV TITR LEOBARDO; Protocol Last Titration: 04/05/20 07:45 Dose: 0 mcg/kg/min, 0 mls/hr Documented by: Levofloxacin/Dextrose (Levaquin 750mg/150ml) 750 mg in 150 mls @ 100 mls/hr IV Q24H LEOBARDO; Protocol Last Admin: 04/04/20 21:28 Dose: 100 mls/hr Documented by: Fentanyl Citrate (Fentanyl Drip Premix) 2,000 mcg in 100 mls @ 4.196 mls/hr IV TITR LEOBARDO; Protocol Last Titration: 04/05/20 08:30 Dose: 0 mcg/kg/hr, 0 mls/hr Documented by: Dextrose/Sodium Chloride (D5ns) 1,000 mls @ 100 mls/hr IV DIRECT LEOBARDO Last Admin: 04/05/20 10:02 Dose: 100 mls/hr Documented by: Lactobacillus Acidophilus (Lactinex) 1 each PO TID LEOBARDO Last Admin: 04/05/20 10:36 Dose: Not Given Documented by: Multi-Ingred Cream/Lotion/Oil/Oint (Artificial Tears Ophth Oint) 1 applic OU Q4HR PRN PRN Reason: Dry Eye(s) Sodium Chloride (Sodium Chloride Flush Syringe 10 Ml) 10 ml IV BID LEOBARDO Sodium Chloride (Sodium Chloride Flush Syringe 10 Ml) 10 ml IV PRN PRN PRN Reason: LINE FLUSH Last Admin: 04/04/20 21:31 Dose: 10 ml Documented by: Review of Systems ROS unobtainable: due to endotracheal tube, due to mental status Physical Examination Vital signs: Vital Signs Pulse Resp 63 15 04/04/20 14:18 04/04/20 14:18 General appearance: no acute distress, asleep Eyes: non-icteric ENT: oropharynx moist, other (ETT at 24cm at the lip, no patient-ventilator dyssynchrony) Neck: supple, no lymphadenopathy, no JVD Effort: normal Ascultation: Bilateral: clear, diminished breath sounds Cardiovascular: regular rate and rhythm, other (S1,S2, no murmurs, gallops or r ubs) Gastrointestinal: normoactive bowel sounds, soft, non-tender, non-distended Integumentary: normal Extremities: no cyanosis, no edema, pink and warm, pulses normal, no ischemia or petechiae non-focal exam (moves all extremiteis, spontaneously), pupils equal and round, other (sedated) other (unable to assess secondary to mental status) Results - Laboratory Findings CBC and BMP: 04/05/20 10:05 04/05/20 10:05 ABG ABG pH 7.379 pH Units (7.350-7.450) 04/05/20 04:24 ABG pCO2 37.0 mm Hg 04/05/20 04:24 ABG pO2 126.6 mm Hg (80.0-90.0) H 04/05/20 04:24 ABG O2 Saturation 98.4 % (95.0-99.0) 04/05/20 04:24 PT/INR, D-dimer PT 13.8 Sec. (12.2-14.9) 04/04/20 15:34 INR 1.05 (0.87-1.13) 04/04/20 15:34 Abnormal lab findings: Abnormal Labs 04/04/20 04/04/20 04/04/20 15:34 15:34 15:34 WBC 14.2 H RDW 18.0 H Lymph % (Auto) 4.5 L Lymph # 0.6 L Seg Neutrophils % 89.6 H Seg Neutrophils # 12.7 H ABG pH ABG pO2 ABG Base Excess ABG Hemoglobin VBG pH Oxyhemoglobin Chloride Carbon Dioxide 20 L Creatinine 1.4 H Glucose 186 H POC Glucose Lactic Acid 5.90 H* Calcium 8.3 L Ammonia Total Creatine Kinase CK-MB (CK-2) Albumin 3.8 L Salicylates Acetaminophen Phenytoin Valproic Acid 04/04/20 04/04/20 04/04/20 15:34 15:34 15:34 WBC RDW Lymph % (Auto) Lymph # Seg Neutrophils % Seg Neutrophils # ABG pH ABG pO2 ABG Base Excess ABG Hemoglobin VBG pH 7.135 L* Oxyhemoglobin Chloride Carbon Dioxide Creatinine Glucose POC Glucose Lactic Acid Calcium Ammonia 142.0 H Total Creatine Kinase 273 H CK-MB (CK-2) 9.8 H Albumin Salicylates Acetaminophen Phenytoin Valproic Acid 04/04/20 04/04/20 04/04/20 15:34 15:34 16:10 WBC RDW Lymph % (Auto) Lymph # Seg Neutrophils % Seg Neutrophils # ABG pH 7.295 L ABG pO2 ABG Base Excess -3.6 L ABG Hemoglobin VBG pH Oxyhemoglobin 92.7 L Chloride Carbon Dioxide Creatinine Glucose POC Glucose Lactic Acid Calcium Ammonia Total Creatine Kinase CK-MB (CK-2) Albumin Salicylates < 0.3 L Acetaminophen < 5.0 L Phenytoin 0.8 L Valproic Acid < 2.8 L 04/04/20 04/05/20 04/05/20 16:13 04:24 10:05 WBC 17.9 H RDW 17.1 H Lymph % (Auto) Lymph # Seg Neutrophils % Seg Neutrophils # ABG pH ABG pO2 126.6 H ABG Base Excess -3.4 L ABG Hemoglobin 10.8 L VBG pH Oxyhemoglobin Chloride Carbon Dioxide Creatinine Glucose POC Glucose 125 H Lactic Acid Calcium Ammonia Total Creatine Kinase CK-MB (CK-2) Albumin Salicylates Acetaminophen Phenytoin Valproic Acid 04/05/20 10:05 WBC RDW Lymph % (Auto) Lymph # Seg Neutrophils % Seg Neutrophils # ABG pH ABG pO2 ABG Base Excess ABG Hemoglobin VBG pH Oxyhemoglobin Chloride 107.2 H Carbon Dioxide Creatinine Glucose POC Glucose Lactic Acid Calcium 8.0 L Ammonia Total Creatine Kinase CK-MB (CK-2) Albumin Salicylates Acetaminophen Phenytoin Valproic Acid - Diagnostic Findings Chest x-ray: image reviewed (right lung infiltrate-atelectasis) Assessment and Plan Sepsis Acute respiratory failure on MVS Acute kidney injury (RON) with acute tubular necrosis (ATN) Methamphetamine abuse Acute encephalopathy, likely metabolic and toxic Tobacco use disorder/Nicotine dependence h/o CKD s/p Stents RECOMMENDATIONS Hold sedation- currently on Fentanyl and Propofol Once awake , pace on SBT- PS 8, Get weaning parameters, if acceptable will plan to liberate from MVS Otherwise continue all critical care as documented below Discontinue Wiley catheter If she is not liberated today, place NGT for enteric nutrition - Empiric antibiotics( Levofloxacin )and de-escalate per clinical course and cultures -Follow up cultures -ABG, CXR in am - Wean supplemental oxygen for target O2 sats > 90% - Daily SAT's and SBT assessment as tolerated - VAP bundle addressed - Lung protective strategies - Bronchodilators with pulmonary hygiene per RT - Wean per pulmonary driven protocols -Bronchodilators per protocol - Accuchecks with glycemic control per SSI (While critically ill target blood glucose of 140-180 mg/dL; avoid hypoglycemia) - Avoid benzodiazepines, reduce the possibility of delirium - prn analgesia per CPOT score - Maintenance of sleep-wake cycle, avoid delirium -Avoid nephrotoxins, closely monitor renal function -Aspiration precautions, HOB >40 - Stress ulcer & VTE prophylaxis ( Heparin, Famotidine) - Mobility protocol, off loading and skin assessment for pressure ulcer prevention - Monitor hemodynamics closely -Nicotine withdrawal precautions Once she is able to actively participate in discussions- smoking cessation counselling, substance abuse counselling -Supportive transfusions as indicated to keep HgB >7g/dL - continue other care per attending / other consultants Discussed with the ICU team-RT,RN, Case management, dialysis registered nurse and clinical pharmacist Life threatening condition- Sepsis, with acute hypoxemic respiratory failure on MVS Mortality/Morbidity- High Complexity of medical decision making- High CONDITION: CRITICAL PROGNOSIS: GUARDED CODE STATUS: FULL CODE The high probability of a clinically significant, sudden or life-threatening deterioration of the [respiratory & cardiovascular] system(s) required my full and direct attention, intervention and personal management. The aggregate critical care time was [35] minutes without overlap. Time includes spent on; [x] Data Review and interpretation [x] Patient assessment and monitoring of vital signs [x] Documentation [x] Medication orders and management t
--- NOTE | 2020-04-05 15:55 | Progress Note ---
Assessment and Plan /Sepsis likely from pneumonia Sepsis protocol: CBC, CMP, urinalysis, chest x-ray, IV fluid resuscitation therapy, IV antibiotic therapy, maintain mean arterial blood pressure greater than or equal to 65, monitor urine output every shift, supportive care, critical care team consulted in ED. The high probability of a clinically significant, sudden or life threatening deterioration of the [cardiac, pulmonary, renal, neuro, ID] system(s) required my full and direct attention, intervention and personal management. The aggregate critical care time was [95] minutes. This time is in addition to time spent performing reported procedures but includes the following: [x] Data Review and interpretation [x] Patient assessment and monitoring of vital signs [x] Documentation [x] Medication orders and management / Acute respiratory failure Patient intubated and on vent support. Chest x-ray, ABG, pulse oximetry, nebulizer therapy, wean vent as tolerated, daily spontaneous breathing trial, sedation holiday, critical care team consulted in ED /Septic shock, wean off pressors as tolerated Continue IV fluid /Acute encephalopathy, likely metabolic and toxic -Due to underlying sepsis and UDS was positive for amphetamine -Continue to follow with supportive care, frequent neuro exam / Acute kidney injury (RON) with vasomotor nephropathy IV fluid resuscitation therapy, monitor urine output every shift, supportive care. / Nicotine dependence Smoking cessation, supportive care. / Methamphetamine abuse Chronic, supportive care, outpatient drug dependence counseling. / Seizure disorder Seizure precautions, supportive care, continue antiepileptic therapy. / Metabolic acidosis BMP, supportive care, treat sepsis, IV bicarbonate therapy, repeat BMP in a.m. /-Hyperammonemia Start on lactulose monitor ammonia level / DVT prophylaxis SCD to bilateral lower extremities while in bed, prophylactic heparin. 04/05: Patient remains intubated, wean off O2 as tolerated, follow pulmonary recommendation Brief history: 40 YO Female with CKD, Seizures, Asthma, Psychosis NOS, Nicotine Dependence presented to ED by EMS after her boyfriend found her lying on the floor unresponsive. Patient seen and evaluated in the emergency department. Lab and imaging studies reviewed. Patient was found to be hypoxemic and unable to protect her airway with clinical symptoms suggestive of acute respiratory fail ure and the patient was subsequently intubated and placed on ventilatory support. The patient was also found to have sepsis with blood pressure of 73/48, acute kidney injury, metabolic acidosis, as well as metabolic encephalopathy. The patient was initiated on sepsis protocol and admitted to ICU due to high risk for cardiopulmonary decompensation. Critical care team consulted in ED. Subjective Date of service: 04/05/20 Objective - Constitutional Vitals: Vital Signs - 12hr 04/05/20 04/05/20 04/05/20 04:00 04:10 04:20 Temperature Pulse Rate 79 80 76 Pulse Rate [ 81 From Monitor] Respiratory 26 H 26 H 26 H Rate Blood Pressure 101/60 101/60 101/60 O2 Sat by Pulse 98 100 100 Oximetry 04/05/20 04/05/20 04/05/20 04:25 04:30 04:40 Temperature Pulse Rate 79 85 82 Pulse Rate [ From Monitor] Respiratory 16 25 H Rate Blood Pressure 101/60 101/60 101/60 O2 Sat by Pulse 98 100 99 Oximetry 04/05/20 04/05/20 04/05/20 04:50 05:00 05:10 Temperature Pulse Rate 81 78 79 Pulse Rate [ From Monitor] Respiratory 26 H 20 26 H Rate Blood Pressure 101/60 81/52 81/52 O2 Sat by Pulse 99 98 98 Oximetry 04/05/20 04/05/20 04/05/20 05:20 05:30 05:40 Temperature Pulse Rate 82 80 77 Pulse Rate [ From Monitor] Respiratory 29 H 20 26 H Rate Blood Pressure 81/52 81/52 81/52 O2 Sat by Pulse 99 97 99 Oximetry 04/05/20 04/05/20 04/05/20 05:50 06:00 06:10 Temperature Pulse Rate 79 77 75 Pulse Rate [ From Monitor] Respiratory 26 H 26 H 26 H Rate Blood Pressure 81/52 90/49 90/49 O2 Sat by Pulse 99 98 99 Oximetry 04/05/20 04/05/20 04/05/20 06:20 06:30 06:40 Temperature Pulse Rate 77 75 76 Pulse Rate [ From Monitor] Respiratory 19 26 H 26 H Rate Blood Pressure 90/49 90/49 90/49 O2 Sat by Pulse 99 99 99 Oximetry 04/05/20 04/05/20 04/05/20 06:50 07:00 07:10 Temperature Pulse Rate 80 76 77 Pulse Rate [ From Monitor] Respiratory 20 26 H 25 H Rate Blood Pressure 90/49 85/46 85/46 O2 Sat by Pulse 100 98 99 Oximetry 04/05/20 04/05/20 04/05/20 07:20 07:30 07:40 Temperature Pulse Rate 76 77 79 Pulse Rate [ From Monitor] Respiratory 24 26 H 25 H Rate Blood Pressure 85/46 85/46 85/46 O2 Sat by Pulse 99 99 99 Oximetry 04/05/20 04/05/20 04/05/20 07:50 08:00 08:10 Temperature 98 F Pulse Rate 79 80 85 Pulse Rate [ From Monitor] Respiratory 26 H 26 H 26 H Rate Blood Pressure 85/46 99/56 99/56 O2 Sat by Pulse 99 98 97 Oximetry 04/05/20 04/05/20 04/05/20 08:20 08:30 08:40 Temperature Pulse Rate 108 H 115 H 114 H Pulse Rate [ From Monitor] Respiratory 26 H 25 H 23 Rate Blood Pressure 99/56 99/56 99/56 O2 Sat by Pulse 84 97 98 Oximetry 04/05/20 04/05/20 04/05/20 08:50 09:00 09:10 Temperature Pulse Rate 108 H 106 H 107 H Pulse Rate [ From Monitor] Respiratory 25 H 25 H 24 Rate Blood Pressure 99/56 109/50 109/50 O2 Sat by Pulse 97 96 95 Oximetry 04/05/20 04/05/20 04/05/20 09:20 09:30 09:40 Temperature Pulse Rate 106 H 105 H 102 H Pulse Rate [ From Monitor] Respiratory 25 H 22 26 H Rate Blood Pressure 109/50 109/50 109/50 O2 Sat by Pulse 97 95 98 Oximetry 04/05/20 04/05/20 04/05/20 09:50 10:00 10:10 Temperature Pulse Rate 106 H 101 H 100 H Pulse Rate [ From Monitor] Respiratory 20 25 H 25 H Rate Blood Pressure 109/50 104/56 104/56 O2 Sat by Pulse 97 96 96 Oximetry 04/05/20 04/05/20 04/05/20 10:20 10:30 10:40 Temperature Pulse Rate 98 H 101 H 94 H Pulse Rate [ From Monitor] Respiratory 25 H 24 17 Rate Blood Pressure 104/56 104/56 104/56 O2 Sat by Pulse 95 97 97 Oximetry 04/05/20 04/05/20 04/05/20 10:50 11:00 11:10 Temperature Pulse Rate 94 H 92 H 93 H Pulse Rate [ From Monitor] Respiratory 14 17 19 Rate Blood Pressure 104/56 92/56 92/56 O2 Sat by Pulse 98 97 98 Oximetry 04/05/20 04/05/20 04/05/20 11:20 11:30 11:40 Temperature Pulse Rate 88 95 H 94 H Pulse Rate [ From Monitor] Respiratory 25 H 16 8 L Rate Blood Pressure 92/56 92/56 92/56 O2 Sat by Pulse 97 98 98 Oximetry 04/05/20 04/05/20 04/05/20 11:50 12:00 12:10 Temperature 98.8 F Pulse Rate 94 H 92 H 90 Pulse Rate [ From Monitor] Respiratory 20 16 26 H Rate Blood Pressure 92/56 102/59 102/59 O2 Sat by Pulse 98 96 92 Oximetry 04/05/20 04/05/20 12:11 13:02 Temperature Pulse Rate 90 Pulse Rate [ From Monitor] Respiratory Rate Blood Pressure 102/59 O2 Sat by Pulse 98 98 Oximetry - Labs CBC & Chem 7: 04/05/20 10:05 04/05/20 10:05 Labs: Abnormal lab results 04/04/20 04/04/20 04/04/20 Range/Units 15:34 15:34 15:34 WBC (4.5-11.0) K/mm3 RDW (13.2-15.2) % ABG pH (7.350-7.450) pH Units ABG pO2 (80.0-90.0) mm Hg ABG Base Excess (-2.0-3.0) mmol/L ABG Hemoglobin (12.0-16.0) gm/dl VBG pH 7.135 L* (7.320-7.420) Oxyhemoglobin (95.0-99.0) % Chloride (98-107) mmol/L Carbon Dioxide 20 L (22-30) mmol/L Creatinine 1.4 H (0.7-1.2) mg/dL Glucose 186 H (65-100) mg/dL POC Glucose (70-105) Lactic Acid 5.90 H* (0.7-2.0) mmol/L Calcium 8.3 L (8.4-10.2) mg/dL Ammonia (25-60) umol/L Total Creatine Kinase (30-135) units/L CK-MB (CK-2) (0.0-4.0) ng/mL Albumin 3.8 L (3.9-5) g/dL Salicylates (2.8-20.0) mg/dL Acetaminophen (10.0-30.0) ug/mL Phenytoin (10.0-20.0) ug/mL Valproic Acid (50-100) ug/mL 04/04/20 04/04/20 04/04/20 Range/Units 15:34 15:34 15:34 WBC (4.5-11.0) K/mm3 RDW (13.2-15.2) % ABG pH (7.350-7.450) pH Units ABG pO2 (80.0-90.0) mm Hg ABG Base Excess (-2.0-3.0) mmol/L ABG Hemoglobin (12.0-16.0) gm/dl VBG pH (7.320-7.420) Oxyhemoglobin (95.0-99.0) % Chloride (98-107) mmol/L Carbon Dioxide (22-30) mmol/L Creatinine (0.7-1.2) mg/dL Glucose (65-100) mg/dL POC Glucose (70-105) Lactic Acid (0.7-2.0) mmol/L Calcium (8.4-10.2) mg/dL Ammonia 142.0 H (25-60) umol/L Total Creatine Kinase 273 H (30-135) units/L CK-MB (CK-2) 9.8 H (0.0-4.0) ng/mL Albumin (3.9-5) g/dL Salicylates < 0.3 L (2.8-20.0) mg/dL Acetaminophen (10.0-30.0) ug/mL Phenytoin 0.8 L (10.0-20.0) ug/mL Valproic Acid < 2.8 L (50-100) ug/mL 04/04/20 04/04/20 04/04/20 Range/Units 15:34 16:10 16:13 WBC (4.5-11.0) K/mm3 RDW (13.2-15.2) % ABG pH 7.295 L (7.350-7.450) pH Units ABG pO2 (80.0-90.0) mm Hg ABG Base Excess -3.6 L (-2.0-3.0) mmol/L ABG Hemoglobin (12.0-16.0) gm/dl VBG pH (7.320-7.420) Oxyhemoglobin 92.7 L (95.0-99.0) % Chloride (98-107) mmol/L Carbon Dioxide (22-30) mmol/L Creatinine (0.7-1.2) mg/dL Glucose (65-100) mg/dL POC Glucose 125 H (70-105) Lactic Acid (0.7-2.0) mmol/L Calcium (8.4-10.2) mg/dL Ammonia (25-60) umol/L Total Creatine Kinase (30-135) units/L CK-MB (CK-2) (0.0-4.0) ng/mL Albumin (3.9-5) g/dL Salicylates (2.8-20.0) mg/dL Acetaminophen < 5.0 L (10.0-30.0) ug/mL Phenytoin (10.0-20.0) ug/mL Valproic Acid (50-100) ug/mL 04/05/20 04/05/20 04/05/20 Range/Units 04:24 10:05 10:05 WBC 17.9 H (4.5-11.0) K/mm3 RDW 17.1 H (13.2-15.2) % ABG pH (7.350-7.450) pH Units ABG pO2 126.6 H (80.0-90.0) mm Hg ABG Base Excess -3.4 L (-2.0-3.0) mmol/L ABG Hemoglobin 10.8 L (12.0-16.0) gm/dl VBG pH (7.320-7.420) Oxyhemoglobin (95.0-99.0) % Chloride 107.2 H (98-107) mmol/L Carbon Dioxide (22-30) mmol/L Creatinine (0.7-1.2) mg/dL Glucose (65-100) mg/dL POC Glucose (70-105) Lactic Acid (0.7-2.0) mmol/L Calcium 8.0 L (8.4-10.2) mg/dL Ammonia (25-60) umol/L Total Creatine Kinase (30-135) units/L CK-MB (CK-2) (0.0-4.0) ng/mL Albumin (3.9-5) g/dL Salicylates (2.8-20.0) mg/dL Acetaminophen (10.0-30.0) ug/mL Phenytoin (10.0-20.0) ug/mL Valproic Acid (50-100) ug/mL HEART Score - HEART Score Troponin: Troponin T 0.021 ng/mL (0.00-0.029) 04/04/20 15:34
[2020-04-05] MEDS: LACTULOSE 20 GM/30 ML ORAL LIQD PO SCH (17:48)
[2020-04-06 04:30] LABS: Basophils % (Auto) 0.3 % (0.0-1.8); Eosinophils # (Auto) 0.1 K/mm3 (0.0-0.4); Eosinophils % (Auto) 0.8 % (0.0-4.3); Hemoglobin 11.1 gm/dl (10.1-14.3); Lymphocytes # (Auto) 1.2 K/mm3 (1.2-5.4); Lymphocytes % (Auto) 9.3 % (13.4-35.0); Monocytes # (Auto) 0.8 K/mm3 (0.0-0.8); Monocytes % (Auto) 6.7 % (0.0-7.3)
[2020-04-06 04:45] LABS: BUN/Creatinine Ratio 22; Blood Urea Nitrogen 13 mg/dL (7-17); Calcium 8.5 mg/dL (8.4-10.2); Hemolysis Index 20
[2020-04-06 04:49] LABS: Hematocrit 34.2 % (30.3-42.9); Mean Corpuscular HGB Conc 32 % (30-34); Mean Corpuscular Volume 84 fl (79-97); Platelet Count 179 K/mm3 (140-440); Red Blood Count 4.08 M/mm3 (3.65-5.03); Red Cell Distribution Width 16.9 % (13.2-15.2)
--- NOTE | 2020-04-06 05:00 | XRay Report ---
CHEST 1 VIEW INDICATION: follow up respiratory failure. COMPARISON: One day prior FINDINGS: Support devices: The patient has been extubated. Heart: Normal. Lungs/Pleura: There are low lung volumes with mild bibasilar opacities. No significant effusion, no p neumothorax. IMPRESSION: 1. No significant change after extubation. Signer Name: Cory Choi MD Signed: 04/06/2020 4:55 AM Workstation Name: [id number]
[2020-04-06] MEDS: LACTULOSE 20 GM/30 ML ORAL LIQD PO SCH ×4 (07:01→17:58)
[2020-04-06] MEDS: LACTINEX CHEW TAB PO SCH ×3 (08:00→20:00)
[2020-04-06] MEDS: FAMOTIDINE 20 MG/2 ML INJ IV SCH ×2 (10:03→21:26)
[2020-04-06] MEDS: HEPARIN 5,000 UNIT/1 ML VIAL SUB-Q SCH ×2 (10:04→21:26)
--- NOTE | 2020-04-06 11:01 | Progress Note ---
Assessment and Plan /Sepsis likely from pneumonia Sepsis protocol: CBC, CMP, urinalysis, chest x-ray, IV fluid resuscitation therapy, IV antibiotic therapy, maintain mean arterial blood pressure greater than or equal to 65, monitor urine output every shift, supportive care, critical care team consulted in ED. / Acute respiratory failure Patient intubated and on vent support. Chest x-ray, ABG, pulse oximetry, nebulizer therapy, wean vent as tolerated, daily spontaneous breathing trial, sedation holiday, critical care team consulted in ED s/p extubation /Septic shock, weaned off pressors as tolerated Continue IV fluid /Aspiration PNA, cont abx /Acute encephalopathy, likely metabolic and toxic -Due to underlying sepsis and UDS was positive for amphetamine -Continue to follow with supportive care, frequent neuro exam / Acute kidney injury (RON) with vasomotor nephropathy IV fluid resuscitation therapy, monitor urine output every shift, supportive care. / Nicotine dependence Smoking cessation, supportive care. / Methamphetamine abuse Chronic, supportive care, outpatient drug dependence counseling. / Seizure disorder Seizure precautions, supportive care, continue antiepileptic therapy. / Metabolic acidosis BMP, supportive care, treat sepsis, IV bicarbonate therapy, repeat BMP in a.m. /-Hyperammonemia Start on lactulose monitor ammonia level / DVT prophylaxis SCD to bilateral lower extremities while in bed, prophylactic heparin. 04/05: Patient remains intubated, wean off O2 as tolerated, follow pulmonary recommendation 04/06: patient extubated O/N, will start on diet, vitals stable, transfer [facility]. will consult mental health for possible drug overdose Brief history: 40 YO Female with CKD, Seizures, Asthma, Psychosis NOS, Nicotine Dependence presented to ED by EMS after her boyfriend found her lying on the floor unresponsive. Patient seen and evaluated in the emergency department. Lab and imaging studies reviewed. Patient was found to be hypoxemic and unable to protect her airway with clinical symptoms suggestive of acute respiratory failure and the patient was subsequently intubated and placed on ventilatory support. The patient was also found to have sepsis with blood pressure of 73/48, acute kidney injury, metabolic acidosis, as well as metabolic encephalopathy. The patient was initiated on sepsis protocol and admitted to ICU due to high risk for cardiopulmonary decompensation. Critical care team consulted in ED. Subjective Date of service: 04/06/20 Objective - Constitutional Vitals: Vital Signs - 12hr 04/05/20 04/05/20 04/05/20 22:50 23:00 23:10 Temperature Pulse Rate 68 72 82 Pulse Rate [ From Monitor] Respiratory 11 L 12 8 L Rate Blood Pressure 105/59 112/66 112/66 O2 Sat by Pulse 93 96 95 Oximetry 04/05/20 04/05/20 04/05/20 23:20 23:30 23:40 Temperature Pulse Rate 83 82 80 Pulse Rate [ From Monitor] Respiratory 18 13 12 Rate Blood Pressure 112/66 112/66 112/66 O2 Sat by Pulse 93 93 94 Oximetry 04/05/20 04/06/20 04/06/20 23:50 00:00 00:10 Temperature Pulse Rate 73 85 81 Pulse Rate [ 75 From Monitor] Respiratory 12 9 L 12 Rate Blood Pressure 112/66 109/66 109/66 O2 Sat by Pulse 96 100 99 Oximetry 04/06/20 04/06/20 04/06/20 00:20 00:30 00:40 Temperature Pulse Rate 79 74 75 Pulse Rate [ From Monitor] Respiratory 9 L 9 L 7 L Rate Blood Pressure 109/66 109/66 109/66 O2 Sat by Pulse 96 95 89 Oximetry 04/06/20 04/06/20 04/06/20 00:50 01:00 01:10 Temperature Pulse Rate 72 87 89 Pulse Rate [ From Monitor] Respiratory 12 7 L 27 H Rate Blood Pressure 109/66 112/66 112/66 O2 Sat by Pulse 87 87 93 Oximetry 04/06/20 04/06/20 04/06/20 01:20 01:30 01:40 Temperature Pulse Rate 85 73 Pulse Rate [ From Monitor] Respiratory 25 H 16 11 L Rate Blood Pressure 112/66 112/66 112/66 O2 Sat by Pulse 96 92 92 Oximetry 04/06/20 04/06/20 04/06/20 01:50 02:00 02:10 Temperature Pulse Rate 73 71 76 Pulse Rate [ From Monitor] Respiratory 10 L 10 L 10 L Rate Blood Pressure 112/66 98/50 112/66 O2 Sat by Pulse 82 L 99 Oximetry 04/06/20 04/06/20 04/06/20 02:20 02:30 02:40 Temperature Pulse Rate 77 77 70 Pulse Rate [ From Monitor] Respiratory 10 L 11 L 11 L Rate Blood Pressure 112/66 112/66 98/50 O2 Sat by Pulse 90 Oximetry 04/06/20 04/06/2004/06/20 02:50 03:00 03:10 Temperature Pulse Rate 72 69 66 Pulse Rate [ From Monitor] Respiratory 11 L 12 10 L Rate Blood Pressure 98/50 105/77 105/77 O2 Sat by Pulse 95 89 93 Oximetry 04/06/20 04/06/20 04/06/20 03:20 03:30 03:40 Temperature Pulse Rate 84 87 Pulse Rate [ From Monitor] Respiratory 8 L 23 18 Rate Blood Pressure 105/77 105/77 105/77 O2 Sat by Pulse 86 94 Oximetry 04/06/20 04/06/20 04/06/20 03:50 04:00 04:10 Temperature Pulse Rate 87 82 76 Pulse Rate [ 75 From Monitor] Respiratory 11 L 29 H 29 H Rate Blood Pressure 105/77 101/71 105/77 O2 Sat by Pulse Oximetry 04/06/20 04/06/20 04/06/20 04:20 04:30 04:40 Temperature Pulse Rate 74 68 82 Pulse Rate [ From Monitor] Respiratory 26 H 13 22 Rate Blood Pressure 105/77 105/77 101/71 O2 Sat by Pulse Oximetry 04/06/20 04/06/20 04/06/20 04:50 05:00 05:10 Temperature Pulse Rate 78 78 76 Pulse Rate [ From Monitor] Respiratory 14 15 10 L Rate Blood Pressure 101/71 109/59 109/59 O2 Sat by Pulse Oximetry 04/06/20 04/06/20 04/06/20 05:20 05:30 05:40 Temperature Pulse Rate 78 78 66 Pulse Rate [ From Monitor] Respiratory 10 L 13 9 L Rate Blood Pressure 109/59 109/59 109/59 O2 Sat by Pulse Oximetry 04/06/20 04/06/20 04/06/20 05:50 06:00 06:10 Temperature Pulse Rate 68 70 69 Pulse Rate [ From Monitor] Respiratory 9 L 9 L 8 L Rate Blood Pressure 109/59 121/74 121/74 O2 Sat by Pulse Oximetry 04/06/20 04/06/20 04/06/20 06:20 06:30 06:40 Temperature Pulse Rate 63 70 62 Pulse Rate [ From Monitor] Respiratory 9 L 8 L 9 L Rate Blood Pressure 121/74 121/74 121/74 O2 Sat by Pulse Oximetry 04/06/20 04/06/20 04/06/20 06:50 07:00 07:10 Temperature Pulse Rate 64 73 58 L Pulse Rate [ From Monitor] Respiratory 12 17 9 L Rate Blood Pressure 121/74 103/75 103/75 O2 Sat by Pulse Oximetry 04/06/20 04/06/20 04/06/20 07:20 07:30 07:40 Temperature 97.8 F Pulse Rate 68 62 69 Pulse Rate [ From Monitor] Respiratory 12 11 L 13 Rate Blood Pressure 103/75 103/75 103/75 O2 Sat by Pulse Oximetry 04/06/20 04/06/20 04/06/20 07:50 08:00 08:10 Temperature Pulse Rate 61 64 70 Pulse Rate [ 72 From Monitor] Respiratory 12 9 L 8 L Rate Blood Pressure 103/75 102/66 102/66 O2 Sat by Pulse Oximetry 04/06/20 04/06/20 04/06/20 08:20 08:30 08:40 Temperature Pulse Rate 68 72 72 Pulse Rate [ From Monitor] Respiratory 13 7 L 9 L Rate Blood Pressure 102/66 102/66 102/66 O2 Sat by Pulse Oximetry 04/06/20 04/06/20 04/06/20 08:50 09:00 09:10 Temperature Pulse Rate 73 62 74 Pulse Rate [ From Monitor] Respiratory 13 14 15 Rate Blood Pressure 102/66 116/67 116/67 O2 Sat by Pulse Oximetry 04/06/20 10:00 Temperature Pulse Rate Pulse Rate [ From Monitor] Respiratory Rate Blood Pressure O2 Sat by Pulse 97 Oximetry - Labs CBC & Chem 7: 04/06/20 03:23 04/06/20 03:23 Labs: Abnormal lab results 04/05/20 04/05/20 04/06/20 Range/Units 10:05 10:05 03:23 WBC 17.9 H 12.5 H (4.5-11.0) K/mm3 MCH 27 L (28-32) pg RDW 17.1 H 16.9 H (13.2-15.2) % Lymph % (Auto) 9.3 L (13.4-35.0) % Seg Neutrophils % 82.9 H (40.0-70.0) % Seg Neutrophils # 10.4 H (1.8-7.7) K/mm3 Chloride 107.2 H (98-107) mmol/L Carbon Dioxide (22-30) mmol/L Creatinine (0.7-1.2) mg/dL Calcium 8.0 L (8.4-10.2) mg/dL Ammonia (25-60) umol/L 04/06/20 04/06/20 Range/Units 03:23 03:23 WBC (4.5-11.0) K/mm3 MCH (28-32) pg RDW (13.2-15.2) % Lymph % (Auto) (13.4-35.0) % Seg Neutrophils % (40.0-70.0) % Seg Neutrophils # (1.8-7.7) K/mm3 Chloride (98-107) mmol/L Carbon Dioxide 21 L (22-30) mmol/L Creatinine 0.6 L (0.7-1.2) mg/dL Calcium (8.4-10.2) mg/dL Ammonia 80.0 H (25-60) umol/L HEART Score - HEART Score Troponin: Troponin T 0.021 ng/mL (0.00-0.029) 04/04/20 15:34
--- NOTE | 2020-04-06 15:39 | Progress Note ---
Assessment and Plan Sepsis Acute respiratory failure on MVS Acute kidney injury (RON) with acute tubular necrosis (ATN) Methamphetamine abuse Acute encephalopathy, likely metabolic and toxic Tobacco use disorder/Nicotine dependence h/o CKD s/p Stents - continue empiric antibiotics( Levofloxacin )and de-escalate per clinical course and cultures - Follow up cultures - supplemental oxygen for target O2 sats > 90% - bronchodilators with pulmonary hygiene per RT - accuchecks with glycemic control per SSI for target blood glucose of < 180 mg/dL; avoid hypoglycemia - prn analgesia per pain score - Maintenance of sleep-wake cycle, avoid delirium - Avoid nephrotoxins, closely monitor renal function - Aspiration precautions, HOB >40 - Stress ulcer & VTE prophylaxis (Heparin, Famotidine) - Mobility protocol, off loading and skin assessment for pressure ulcer prevention - Monitor hemodynamics closely - Nicotine withdrawal precautions(smoking cessation counselling, substance abuse counselling) - Supportive transfusions as indicated to keep HgB >7g/dL - continue other care per attending / other consultants ... re-evaluate in am & prn Subjective Date of service: 04/06/20 Principal diagnosis: Sepsis; Acute respiratory failure; Acute encephalopathy; RON Interval history: Patient is seen today for: Sepsis; Acute respiratory failure s/p MVS; RON; Methamphetamine abuse; Acute encephalopathy, likely metabolic and toxic; Tobacco use disorder/Nicotine dependence; h/o CKD s/p Stents Seen and examined at bedside; 24hour events reviewed; nursing and respiratory care staff consulted; no adverse overnight events reported to me; resting peacefully in bed; denies acute chest pains or palpitations; not SOB Objective Vital Signs - 12hr 04/06/20 04/06/20 04/06/20 03:40 03:50 04:00 Temperature Pulse Rate 87 87 82 Pulse Rate [ 75 From Monitor] Respiratory 18 11 L 29 H Rate Blood Pressure 105/77 105/77 101/71 O2 Sat by Pulse Oximetry 04/06/20 04/06/20 04/06/20 04:10 04:20 04:30 Temperature Pulse Rate 76 74 68 Pulse Rate [ From Monitor] Respiratory 29 H 26 H 13 Rate Blood Pressure 105/77 105/77 105/77 O2 Sat by Pulse Oximetry 04/06/20 04/06/20 04/06/20 04:40 04:50 05:00 Temperature Pulse Rate 82 78 78 Pulse Rate [ From Monitor] Respiratory 22 14 15 Rate Blood Pressure 101/71 101/71 109/59 O2 Sat by Pulse Oximetry 04/06/20 04/06/20 04/06/20 05:10 05:20 05:30 Temperature Pulse Rate 76 78 78 Pulse Rate [ From Monitor] Respiratory 10 L 10 L 13 Rate Blood Pressure 109/59 109/59 109/59 O2 Sat by Pulse Oximetry 04/06/20 04/06/20 04/06/20 05:40 05:50 06:00 Temperature Pulse Rate 66 68 70 Pulse Rate [ From Monitor] Respiratory 9 L 9 L 9 L Rate Blood Pressure 109/59 109/59 121/74 O2 Sat by Pulse Oximetry 04/06/20 04/06/20 04/06/20 06:10 06:20 06:30 Temperature Pulse Rate 69 63 70 Pulse Rate [ From Monitor] Respiratory 8 L 9 L 8 L Rate Blood Pressure 121/74 121/74 121/74 O2 Sat by Pulse Oximetry 04/06/20 04/06/20 04/06/20 06:40 06:50 07:00 Temperature Pulse Rate 62 64 73 Pulse Rate [ From Monitor] Respiratory 9 L 12 17 Rate Blood Pressure 121/74 121/74 103/75 O2 Sat by Pulse Oximetry 04/06/20 04/06/20 04/06/20 07:10 07:20 07:30 Temperature 97.8 F Pulse Rate 58 L 68 62 Pulse Rate [ From Monitor] Respiratory 9 L 12 11 L Rate Blood Pressure 103/75 103/75 103/75 O2 Sat by Pulse Oximetry 04/06/20 04/06/20 04/06/20 07:40 07:50 08:00 Temperature Pulse Rate 69 61 64 Pulse Rate [ 72 From Monitor] Respiratory 13 12 9 L Rate Blood Pressure 103/75 103/75 102/66 O2 Sat by Pulse Oximetry 04/06/20 04/06/20 04/06/20 08:10 08:20 08:30 Temperature Pulse Rate 70 68 72 Pulse Rate [ From Monitor] Respiratory 8 L 13 7 L Rate Blood Pressure 102/66 102/66 102/66 O2 Sat by Pulse Oximetry 04/06/20 04/06/20 04/06/20 08:40 08:50 09:00 Temperature Pulse Rate 72 73 62 Pulse Rate [ From Monitor] Respiratory 9 L 13 14 Rate Blood Pressure 102/66 102/66 116/67 O2 Sat by Pulse Oximetry 04/06/20 04/06/20 04/06/20 09:10 09:20 09:30 Temperature Pulse Rate 74 71 64 Pulse Rate [ From Monitor] Respiratory 15 11 L 7 L Rate Blood Pressure 116/67 116/67 116/67 O2 Sat by Pulse Oximetry 04/06/20 04/06/20 04/06/20 09:40 09:50 10:00 Temperature Pulse Rate 90 69 93 H Pulse Rate [ From Monitor] Respiratory 19 7 L 14 Rate Blood Pressure 116/67 116/67 116/67 O2 Sat by Pulse 95 97 Oximetry 04/06/20 04/06/20 04/06/20 10:10 10:20 10:30 Temperature Pulse Rate 72 62 Pulse Rate [ From Monitor] Respiratory 13 Rate Blood Pressure 116/67 116/67 116/67 O2 Sat by Pulse 97 95 96 Oximetry 04/06/20 04/06/20 04/06/20 10:40 10:50 11:00 Temperature Pulse Rate 63 59 L 62 Pulse Rate [ From Monitor] Respiratory 19 19 22 Rate Blood Pressure 116/67 116/67 112/61 O2 Sat by Pulse 98 96 Oximetry 04/06/20 04/06/20 04/06/20 11:10 11:20 11:30 Temperature Pulse Rate 60 61 62 Pulse Rate [ From Monitor] Respiratory 21 19 17 Rate Blood Pressure 112/61 112/61 112/61 O2 Sat by Pulse 97 98 98 Oximetry 04/06/20 04/06/20 04/06/20 11:40 11:50 12:00 Temperature Pulse Rate 57 L 57 L 52 L Pulse Rate [ From Monitor] Respiratory 19 22 15 Rate Blood Pressure 112/61 112/61 116/59 O2 Sat by Pulse 98 Oximetry 04/06/20 04/06/20 04/06/20 12:02 12:10 12:20 Temperature 97.9 F Pulse Rate 58 L 57 L Pulse Rate [ From Monitor] Respiratory 13 9 L Rate Blood Pressure 112/61 112/61 O2 Sat by Pulse Oximetry 04/06/20 14:13 Temperature 98.8 F Pulse Rate 68 Pulse Rate [ From Monitor] Respiratory 15 Rate Blood Pressure 91/51 O2 Sat by Pulse 95 Oximetry Constitutional: no acute distress, asleep Eyes: non-icteric ENT: oropharynx moist, other (extubated) Neck: supple, no lymphadenopathy, no JVD Effort: normal Ascultation: Right: rales (base), Bilateral: diminished breath sounds Percussion: Bilateral: not dull Cardiovascular: regular rate and rhythm, other (S1,S2, no murmurs, gallops or rubs) Gastrointestinal: normoactive bowel sounds, soft, non-tender, non-distended Integumentary: normal Extremities: no cyanosis, no edema, pink and warm, pulses normal, no ischemia or petechiae Neurologic: normal mental status, pupils equal and round, CN II-XII normal, motor strength normal and Psychiatric: mood appropriate, affect normal CBC and BMP: 04/06/20 03:23 04/06/20 03:23 ABG, PT/INR, D-dimer: ABG ABG pH 7.379 pH Units (7.350-7.450) 04/05/20 04:24 ABG pCO2 37.0 mm Hg 04/05/20 04:24 ABG pO2 126.6 mm Hg (80.0-90.0) H 04/05/20 04:24 ABG O2 Saturation 98.4 % (95.0-99.0) 04/05/20 04:24 PT/INR, D-dimer PT 13.8 Sec. (12.2-14.9) 04/04/20 15:34 INR 1.05 (0.87-1.13) 04/04/20 15:34 Abnormal lab findings: Abnormal Labs 04/04/20 04/04/20 04/04/20 15:34 15:34 15:34 WBC 14.2 H MCH RDW 18.0 H Lymph % (Auto) 4.5 L Lymph # 0.6 L Seg Neutrophils % 89.6 H Seg Neutrophils # 12.7 H ABG pH ABG pO2 ABG Base Excess ABG Hemoglobin VBG pH Oxyhemoglobin Chloride Carbon Dioxide 20 L Creatinine 1.4 H Glucose 186 H POC Glucose Lactic Acid 5.90 H* Calcium 8.3 L Ammonia Total Creatine Kinase CK-MB (CK-2) Albumin 3.8 L Salicylates Acetaminophen Phenytoin Valproic Acid 04/04/20 04/04/20 04/04/20 15:34 15:34 15:34 WBC MCH RDW Lymph % (Auto) Lymph # Seg Neutrophils % Seg Neutrophils # ABG pH ABG pO2 ABG Base Excess ABG Hemoglobin VBG pH 7.135 L* Oxyhemoglobin Chloride Carbon Dioxide Creatinine Glucose POC Glucose Lactic Acid Calcium Ammonia 142.0 H Total Creatine Kinase 273 H CK-MB (CK-2) 9.8 H Albumin Salicylates Acetaminophen Phenytoin Valproic Acid 04/04/20 04/04/20 04/04/20 15:34 15:34 16:10 WBC MCH RDW Lymph % (Auto) Lymph # Seg Neutrophils % Seg Neutrophils # ABG pH 7.295 L ABG pO2 ABG Base Excess -3.6 L ABG Hemoglobin VBG pH Oxyhemoglobin 92.7 L Chloride Carbon Dioxide Creatinine Glucose POC Glucose Lactic Acid Calcium Ammonia Total Creatine Kinase CK-MB (CK-2) Albumin Salicylates < 0.3 L Acetaminophen < 5.0 L Phenytoin 0.8 L Valproic Acid < 2.8 L 04/04/20 04/05/20 04/05/20 16:13 04:24 10:05 WBC 17.9 H MCH RDW 17.1 H Lymph % (Auto) Lymph # Seg Neutrophils % Seg Neutrophils # ABG pH ABG pO2 126.6 H ABG Base Excess -3.4 L ABG Hemoglobin 10.8 L VBG pH Oxyhemoglobin Chloride Carbon Dioxide Creatinine Glucose POC Glucose 125 H Lactic Acid Calcium Ammonia Total Creatine Kinase CK-MB (CK-2) Albumin Salicylates Acetaminophen Phenytoin Valproic Acid 04/05/20 04/06/20 04/06/20 10:05 03:23 03:23 WBC 12.5 H MCH 27 L RDW 16.9 H Lymph % (Auto) 9.3 L Lymph # Seg Neutrophils % 82.9 H Seg Neutrophils # 10.4 H ABG pH ABG pO2 ABG Base Excess ABG Hemoglobin VBG pH Oxyhemoglobin Chloride 107.2 H Carbon Dioxide 21 L Creatinine 0.6 L Glucose POC Glucose Lactic Acid Calcium 8.0 L Ammonia Total Creatine Kinase CK-MB (CK-2) Albumin Salicylates Acetaminophen Phenytoin Valproic Acid 04/06/20 03:23 WBC MCH RDW Lymph % (Auto) Lymph # Seg Neutrophils % Seg Neutrophils # ABG pH ABG pO2 ABG Base Excess ABG Hemoglobin VBG pH Oxyhemoglobin Chloride Carbon Dioxide Creatinine Glucose POC Glucose Lactic Acid Calcium Ammonia 80.0 H Total Creatine Kinase CK-MB (CK-2) Albumin Salicylates Acetaminophen Phenytoin Valproic Acid Allied health notes reviewed: nursing
[2020-04-07] MEDS: LACTINEX CHEW TAB PO SCH ×3 (09:39→21:00)
[2020-04-07] MEDS: HEPARIN 5,000 UNIT/1 ML VIAL SUB-Q SCH ×2 (09:40→22:11)
[2020-04-07] MEDS: FAMOTIDINE 20 MG/2 ML INJ IV SCH ×2 (09:40→22:11)
--- NOTE | 2020-04-07 10:20 | Consultation ---
History of Present Illness - Reason for Consult Consult date: 04/07/20 Reason for consult: MHE Requesting physician: FAIZA DICKINSON - Chief Complaint Chief complaint: Unresponsive - History of Present Psychiatric Illness Per ED Provider: 40-year-old female the past medical history of seizures, kidney stones requiring ureteral stents, and asthma presents to the hospital alteration in mental status. As per EMS patient was found by boyfriend on the floor. Patient unable to provide any history of present illness. Boyfriend was unable to tell them last time she was seen normal. They state that house was trashed with broken objects and glass everywhere. As per medical record patient also has a history of a psychiatric disorder. EMS provided a dose of Narcan without change in mental status. They report a glucose in the 60s. No other meds provided in route patient arrives with sonorous respirations, intermittent decerebrate posturing, and a repeat Accu-Chek of 50. PSYCH HPI Patient is a single unemployed 40-year-old female with past psychiatric history of major depression, substance abuse, antisocial personality disorder, and bipolar not currently on medical management who was admitted to this hospital for drug overdose with intention unknown. Patient reports she only took 1 pill of oxycodone that she got from a friend, claimed that was her first time use, endorses other illicit drug use such as meth cocaine alcohol. Patient reported that she currently lives with her boyfriend, and was at her boyfriend's place when incident occurred and does not remember any events after pill ingestion until yesterday when she woke up in the emergency room. Patient stated that she currently have a mom and sister, admits that relationship with them could be better. Endorses occasional mood swings, insomnia, decreased appetite, irritability and anhedonia Per Collateral: Patient sister spoke to me, she reported patient partner was found on the day patient was admitted to this facility due to overdose and patient is currently not aware. She also report patient is in the now over mental health issues, and can be manipulative to avoid being committed to the facility. She reports extensive drug abuse history and family has tried to intervene. PAST PSYCHIATRIC HISTORY Diagnoses: Major depression, antisocial personality, bipolar Suicide attempts or Self-harm behavior: None reported Prior psychiatric hospitalizations: Yes Substance Abuse history: Cocaine meths alcohol and pain. Previous psychiatric medications tried: Noncompliant Outpatient treatment: Noncompliant PAST MEDICAL HISTORY: Family Psychiatric History: None reported or documented SOCIAL HISTORY Marital Status: Single Living Arrangements: With boyfriend (boyfriend found overdose) Employment Status: Unemployed Access to guns/weapons: None reported Education: High school 10th grade dropped out History of Abuse: None reported Legal History: Yes REVIEW OF SYSTEMS Constitutional: Negative for weight loss ENT: Negative for stridor Respiratory: Negative for cough or hemoptysis All other systems reviewed and are negative MENTAL STATUS EXAMINATION General Appearance and Behavior: Age appropriate, good hygiene, wearing appropriate clothes, lying in bed, poor eye contact, uncooperative irritable with questioning. Cooperation: Withdrawn, Isolative, Hostile and Guarded Psychomotor Behavior: unremarkable and within normal limits Mood: Good Affect and affective range: depressed affect Thought Process: Fluent/Logical Thought Content: Within reality Speech: Normal volume, Regular rate and rhythm Intellectual Functioning: Average Suicidal Ideation: Denies SI (in denial according to family) Homicidal Ideation: Denies HI Impulse Control: Unimpaired Insight and Judgment: Limited insight and judgment Memory: Normal Attention: Divided attention impaired Orientation: Alert, oriented Assessment and Plan - Psychiatric problem (1) MDD (major depressive disorder) Current Visit: Yes Status: Acute (2) Substance use disorder Current Visit: Yes Status: Acute (3) Methamphetamine use disorder, severe, dependence Current Visit: Yes Status: Acute (4) Bipolar 1 disorder, depressed, moderate Current Visit: Yes Status: Acute RECOMMENDATIONS Per Collateral: I spoke with patient's Sister Anastasiya at [phone], who informed me that patient's partner whom she currently lives with was later confirmed to have of overdose same day patient was found and patient does not currently knows that. Sister reports patient has extensive drug use history, family has tried to intervene but she pushes everyone away including MUM. Sister also states patient non adherence to treatment and medication is another contributing factor and she would lie about things to avoid being commited. She also states patient is in denial of her mental health issues and believes she needs psychiatric intervention. MEDICATIONS Risks, benefits and alternatives of medications discussed with the patient, ques tions answered and consent obtained from patient. PSYCHOTHERAPY: Supportive psychotherapy provided MEDICAL: Per primary team DELIRIUM PRECAUTIONS: Please re-orient patient frequently, keep lights on during the day, and minimize benzodiazepines and opiates as these medications could worsen patient's confusion. PALLIATIVE CARE PHYSICIAN: Yes recommended DISPOSITION: Recommend acute inpatient psychiatric hospitalization at this time for medical management of mood disorder, MDD and psychotherapy intervention due to patients history, denial and recent overdose. LEGAL STATUS: 1013 FOLLOW-UP: Will follow Thank you for the consult. Please contact with any questions and/or concerns. Medications and Allergies Allergies Allergy/AdvReac Type Severity Reaction Status Date / Time No Known Allergies Allergy Unverified 09/29/14 19:48 Home Medications Medication Instructions Recorded Confirmed Last Taken Type No Known Home Medications [No 04/05/20 04/05/20 Unknown History Reported Home Medications] Active Meds: Active Medications Lipase/Protease/Amylase (Pancreaze Dr 10,500 Unit) 1 each FEEDTUBE PRN PRN PRN Reason: For Clogged Feeding Tube Famotidine (Pepcid) 20 mg IV BID [facility] Last Admin: 04/07/20 09:40 Dose: 20 mg Documented by: Heparin Sodium (Porcine) (Heparin) 5,000 unit SUB-Q Q12HR [facility] Last Admin: 04/07/20 09:40 Dose: 5,000 unit Documented by: Hydrophilic Ointment (Vaseline Lip Therapy) 1 applic TP Q2HR PRN PRN Reason: Dry Lips Levofloxacin/Dextrose (Levaquin 750mg/150ml) 750 mg in 150 mls @ 100 mls/hr IV Q24H [facility]; Protocol Last Admin: 04/06/20 20:00 Dose: 100 mls/hr Documented by: Lactobacillus Acidophilus (Lactinex) 1 each PO TID [facility] Last Admin: 04/07/20 09:39 Dose: 1 each Documented by: Multi-Ingred Cream/Lotion/Oil/Oint (Artificial Tears Ophth Oint) 1 applic OU Q4HR PRN PRN Reason: Dry Eye(s) Simple Syrup (Simple Syrup) 15 ml FEEDTUBE PRN PRN PRN Reason: Hypoglycemia Simple Syrup (Simple Syrup) 30 ml FEEDTUBE PRN PRN PRN Reason: Hypoglycemia Sodium Bicarbonate (Sodium Bicarbonate) 325 mg FEEDTUBE PRN PRN PRN Reason: For Clogged Feeding Tube Sodium Chloride (Sodium Chloride Flush Syringe 10 Ml) 10 ml IV BID [facility] Last Admin: 04/07/20 09:40 Dose: 10 ml Documented by: Sodium Chloride (Sodium Chloride Flush Syringe 10 Ml) 10 ml IV PRN PRN PRN Reason: LINE FLUSH Last Admin: 04/04/20 21:31 Dose: 10 ml Documented by: Mental Status Exam - Vital signs Last Vital Signs Temp 98.5 F 04/07/20 04:39 Pulse 66 04/07/20 04:39 Resp 18 04/07/20 04:39 BP 131/83 04/07/20 04:39 Pulse Ox 95 04/07/20 04:39 Results Result Diagrams: 04/06/20 03:23 04/06/20 03:23 All other labs normal. Assessment and Plan - Psychiatric problem (1) MDD (major depressive disorder) Current Visit: Yes Status: Acute (2) Substance use disorder Current Visit: Yes Status: Acute (3) Methamphetamine use disorder, severe, dependence Current Visit: Yes Status: Acute (4) Bipolar 1 disorder, depressed, moderate Current Visit: Yes Status: Acute
--- NOTE | 2020-04-07 12:43 | Progress Note ---
Assessment and Plan /Sepsis likely from pneumonia Sepsis protocol: CBC, CMP, urinalysis, chest x-ray, IV fluid resuscitation therapy, IV antibiotic therapy, maintain mean arterial blood pressure greater than or equal to 65, monitor urine output every shift, supportive care, critical care team consulted in ED. / Acute respiratory failure Patient intubated and on vent support. Chest x-ray, ABG, pulse oximetry, nebulizer therapy, wean vent as tolerated, daily spontaneous breathing trial, sedation holiday, critical care team consulted in ED s/p extubation /Septic shock, weaned off pressors as tolerated Continue IV fluid /Aspiration PNA, cont abx /Acute encephalopathy, likely metabolic and toxic -Due to underlying sepsis and UDS was positive for amphetamine -Continue to follow with supportive care, frequent neuro exam / Acute kidney injury (RON) with vasomotor nephropathy IV fluid resuscitation therapy, monitor urine output every shift, supportive care. / Nicotine dependence Smoking cessation, supportive care. / Methamphetamine abuse Chronic, supportive care, outpatient drug dependence counseling. / Seizure disorder Seizure precautions, supportive care, continue antiepileptic therapy. / Substance use disorder, counselled / Bipolar 1 disorder, depressed, moderate - need inpt psych admission / Metabolic acidosis BMP, supportive care, treat sepsis, IV bicarbonate therapy, repeat BMP in a.m. /-Hyperammonemia Start on lactulose monitor ammonia level / DVT prophylaxis SCD to bilateral lower extremities while in bed, prophylactic heparin. 04/05: Patient remains intubated, wean off O2 as tolerated, follow pulmonary recommendation 04/06: patient extubated O/N, will start on diet, vitals stable, transfer to [facility]. will consult mental health for possible drug overdose 04/07: discussed with sister, pt has h/o bipolar disorder and substance abuse history, also noncompliant with her medication. Her boyfriend diet the same day patient admitted to the [facility] from drug OD and patient does not know that yet. Psych recommended inpt psych admission Disposition: medically stable for inpt psych admission Brief history: 40 YO Female with CKD, Seizures, Asthma, Psychosis NOS, Nicotine Dependence p resented to ED by EMS after her boyfriend found her lying on the floor unresponsive. Patient seen and evaluated in the emergency department. Lab and imaging studies reviewed. Patient was found to be hypoxemic and unable to protect her airway with clinical symptoms suggestive of acute respiratory failure and the patient was subsequently intubated and placed on ventilatory support. The patient was also found to have sepsis with blood pressure of 73/48, acute kidney injury, metabolic acidosis, as well as metabolic encephalopathy. The patient was initiated on sepsis protocol and admitted to [facility] due to high risk for cardiopulmonary decompensation. Critical care team consulted in ED. Subjective Date of service: 04/07/20 Principal diagnosis: Sepsis; Acute respiratory failure; Acute encephalopathy; RON Objective - Constitutional Vitals: Vital Signs - 12hr 04/07/20 04:39 Temperature 98.5 F Pulse Rate 66 Respiratory 18 Rate Blood Pressure 131/83 O2 Sat by Pulse 95 Oximetry - Labs CBC & Chem 7: 04/06/20 03:23 04/06/20 03:23 HEART Score - HEART Score Troponin: Troponin T 0.021 ng/mL (0.00-0.029) 04/04/20 15:34
[2020-04-07] MEDS ORDERED: MELATONIN 5 MG TAB PO PRN ×2 (21:10→21:14)
[2020-04-07] MEDS ORDERED: traZODone 50 MG TAB PO SCH (22:00)
[2020-04-07] MEDS: PARoxetine 10 MG TAB PO SCH (23:33)
[2020-04-08] MEDS: HEPARIN 5,000 UNIT/1 ML VIAL SUB-Q SCH (09:39)
[2020-04-08] MEDS: FAMOTIDINE 20 MG/2 ML INJ IV SCH (09:39)
[2020-04-08] MEDS: LACTINEX CHEW TAB PO SCH (09:39)
--- NOTE | 2020-04-08 10:11 | Progress Note ---
Subjective - Reason for Consult Consult date: 04/08/20 Reason for consult: MHE Requesting physician: FAIZA DICKINSON - Chief Complaint Chief complaint: MENTAL STATUS EXAMINATION General Appearance and Behavior: Age appropriate, good hygiene, wearing appropriate clothes, lying in bed, poor eye contact, uncooperative irritable with questioning. Cooperation: Withdrawn, Isolative, Hostile and Guarded Psychomotor Behavior: unremarkable and within normal limits Mood: Good Affect and affective range: depressed affect Thought Process: Fluent/Logical Thought Content: Within reality Speech: Normal volume, Regular rate and rhythm Intellectual Functioning: Average Suicidal Ideation: Denies SI (in denial according to family) Homicidal Ideation: Denies HI Impulse Control: Unimpaired Insight and Judgment: Limited insight and judgment Memory: Normal Attention: Divided attention impaired Orientation: Alert, oriented Assessment and Plan - Psychiatric problem (1) MDD (major depressive disorder) Current Visit: Yes Status: Acute (2) Substance use disorder Current Visit: Yes Status: Acute (3) Methamphetamine use disorder, severe, dependence Current Visit: Yes Status: Acute (4) Bipolar 1 disorder, depressed, moderate Current Visit: Yes Status: Acute RECOMMENDATIONS Per Collateral: I spoke with patient's Sister Anastasiya at [phone], who informed me that patient's partner whom she currently lives with was later confirmed to have of overdose same day patient was found and patient does not currently knows that. Sister reports patient has extensive drug use history, family has tried to intervene but she pushes everyone away including MUM. Sister also states patient non adherence to treatment and medication is another contributing factor and she would lie about things to avoid being commited. She also states patient is in denial of her mental health issues and believes she needs psychiatric intervention. MEDICATIONS Risks, benefits and alternatives of medications discussed with the patient, questions answered and consent obtained from patient. PSYCHOTHERAPY: Supportive psychotherapy provided MEDICAL: Per primary team DELIRIUM PRECAUTIONS: Please re-orient patient frequently, keep lights on during the day, and minimize benzodiazepines and opiates as these medications could worsen patient's confusion. FOREST BIOMETRICS PROFESSOR: Yes recommended DISPOSITION: Recommend acute inpatient psychiatric hospitalization at this time for medical management of mood disorder, MDD and psychotherapy intervention due to patients history, denial and recent overdose. LEGAL STATUS: 1013 FOLLOW-UP: Will follow Thank you for the consult. Please contact with any questions and/or concerns. Mental Status Exam - Vital signs Last Vital Signs Temp 98.5 F 04/08/20 08:18 Pulse 74 04/08/20 08:18 Resp 18 04/08/20 08:18 BP 131/80 04/08/20 08:18 Pulse Ox 91 04/08/20 08:18 Assessment and Plan - Patient Problems (1) MDD (major depressive disorder) Current Visit: Yes Status: Acute (2) Substance use disorder Current Visit: Yes Status: Acute (3) Methamphetamine use disorder, severe, dependence Current Visit: Yes Status: Acute (4) Bipolar 1 disorder, depressed, moderate Current Visit: Yes Status: Acute
[2020-04-08 11:36] VITALS: BP 138/78
--- NOTE | 2020-04-08 12:52 | Discharge Summary ---
Providers - Providers Date of Admission: 04/04/20 17:30 Date of discharge: 04/08/20 Attending physician: FAIZA DICKINSON 04/04/20 14:43 Consult to Dietitian/Nutrition [CONS] Routine Physician Instructions: Reason For Exam: Reason for Consult: Evaluate nutritional intake 04/04/20 17:31 Consult to Physician [CONS] Routine Comment: Consulting Provider: CLYDE LUA Physician Instructions: Reason For Exam: Resp Failure on vent, 04/05/20 12:19 Consult to Dietitian/Nutrition [CONS] Routine Physician Instructions: Reason For Exam: Reason for Consult: Write/Manage Tube Feeding 04/06/20 10:41 Consult to Mental Health [CONS] Routine Reason For Exam: drug overdose Primary care physician: PHYSICAL FITNESS TRAINER Hospitalization Condition: Stable Hospital course: 40 YO Female with CKD, Seizures, Asthma, Psychosis NOS, Nicotine Dependence presented to ED by EMS after her boyfriend found her lying on the floor unresp onsive. Patient seen and evaluated in the emergency department. Lab and imaging studies reviewed. Patient was found to be hypoxemic and unable to protect her airway with clinical symptoms suggestive of acute respiratory failure and the patient was subsequently intubated and placed on ventilatory support. The patient was also found to have sepsis with blood pressure of 73/48, acute kidney injury, metabolic acidosis, as well as metabolic encephalopathy. The patient was initiated on sepsis protocol and admitted to ICU due to high risk for cardiopulmonary decompensation. Critical care team c onsulted in ED. 04/05: Patient remains intubated, wean off O2 as tolerated, follow pulmonary recommendation 04/06: patient extubated O/N, will start on diet, vitals stable, transfer to [facility]. will consult mental health for possible drug overdose 04/07: discussed with sister, pt has h/o bipolar disorder and substance abuse history, also noncompliant with her medication. Her boyfriend diet the same day patient admitted to the [facility] from drug OD and patient does not know that yet. Psych recommended inpt psych admission 04/08: 1030 and has been rescinded by psych, and also recommended voluntary outpatient follow-up. Patient will be discharged home in stable condition with outpatient follow-up. Discharge diagnosis: /Sepsis likely from pneumonia Sepsis protocol: CBC, CMP, urinalysis, chest x-ray, IV fluid resuscitation therapy, IV antibiotic therapy, maintain mean arterial blood pressure greater than or equal to 65, monitor urine output every shift, supportive care, critical care team consulted in ED. / Acute respiratory failure Patient intubated and on vent support. Chest x-ray, ABG, pulse oximetry, nebulizer therapy, wean vent as tolerated, daily spontaneous breathing trial, sedation holiday, critical care team consulted in ED s/p extubation /Septic shock, weaned off pressors as tolerated Continue IV fluid /Aspiration PNA, cont abx /Acute encephalopathy, likely metabolic and toxic -Due to underlying sepsis and UDS was positive for amphetamine -Continue to follow with supportive care, frequent neuro exam / Acute kidney injury (RON) with vasomotor nephropathy IV fluid resuscitation therapy, monitor urine output every shift, supportive care. / Nicotine dependence Smoking cessation, supportive care. / Methamphetamine abuse Chronic, supportive care, outpatient drug dependence counseling. / Seizure disorder Seizure precautions, supportive care, continue antiepileptic therapy. / Substance use disorder, counselled / Bipolar 1 disorder, depressed, moderate - need inpt psych admission / Metabolic acidosis BMP, supportive care, treat sepsis, IV bicarbonate therapy, repeat BMP in a.m. /-Hyperammonemia Start on lactulose monitor ammonia level / DVT prophylaxis SCD to bilateral lower extremities while in bed, prophylactic heparin. Disposition: home with outpatient follow-up Disposition: TO HOME OR SELFCARE Time spent for discharge: 34 minutes Core Measure Documentation - Palliative Care Palliative Care/ Comfort Measures: Not Applicable - Core Measures Any of the following diagnoses?: none Exam - Physical Exam Narrative exam: GENERAL: well-developed and well-nourished white female lying on bed appeared to be in no discomfort. HEENT: Normocephalic. Atraumatic. No conjunctival congestion or icterus. Patient has moist mucous membranes. NECK: Supple. Trachea midline. CHEST/LUNGS: Clear to auscultated bilaterally, breathing nonlabored. No wheezes crackles or rhonchi. HEART/CARDIOVASCULAR: Regular in rate and rhythm. S1 and S2 positive. ABDOMEN: Abdomen is soft, nontender. Patient has normal bowel sounds. SKIN: There is no rash. Warm and dry. NEURO: No focal motor deficit. Follows command. MUSCULOSKELETAL: No joint effusion or tenderness. EXTRIMITY: No edema, no cyanosis or clubbing. PSYCH: Cooperative. - Constitutional Vitals: Temp Pulse Resp BP Pulse Ox 97.9 F 62 18 138/78 96 04/08/20 11:34 04/08/20 11:34 04/08/20 11:34 04/08/20 11:34 04/08/20 11:34 Plan Activity: advance as tolerated Weight Bearing Status: Weight Bear as Tolerated Diet: low fat, low salt Special Instructions: other (Abstinence from substance abuse) Additional Instructions: Follow-up at [facility] psych department Follow up with: PRIMARY CARE, [Primary Care Provider] - 7 Days Prescriptions: Melatonin [Melatonin 5MG TAB] 5 mg PO QHS PRN #7 tablet PRN Reason: Sleep PARoxetine [Paxil] 10 mg PO QDAY #14 tablet
[2020-04-08] MEDS: PARoxetine 10 MG TAB PO SCH (14:04)
--- NOTE | 2020-04-08 14:25 | Progress Note ---
Assessment and Plan - Patient Problems (1) Acute respiratory failure Current Visit: Yes Status: Acute Qualifiers: Respiratory failure complication: hypoxia Qualified Code(s): J96.01 - Acute respiratory failure with hypoxia (2) Altered mental status Current Visit: Yes Status: Acute (3) Hypoglycemia Current Visit: Yes Status: Acute (4) Hypothermia Current Visit: Yes Status: Acute (5) Metabolic acidosis Current Visit: Yes Status: Acute (6) Methamphetamine abuse Current Visit: Yes Status: Acute (7) Nicotine dependence Current Visit: Yes Status: Acute Qualifiers: Nicotine product type: cigarettes Substance use status: in withdrawal Qualified Code(s): F17.213 - Nicotine dependence, cigarettes, with withdrawal (8) Seizure disorder Current Visit: Yes Status: Acute (9) Sepsis Current Visit: Yes Status: Acute (10) Acute kidney injury (RON) with acute tubular necrosis (ATN) Current Visit: Yes Status: Acute (11) Bipolar 1 disorder, depressed, moderate Current Visit: Yes Status: Acute Subjective Date of service: 04/08/20 Principal diagnosis: Sepsis; Acute respiratory failure; Acute encephalopathy; RON Objective Vital Signs - 12hr 04/08/20 04/08/20 04/08/20 04:12 05:00 08:18 Temperature 98.4 F 98.5 F Pulse Rate 83 83 74 Respiratory 18 18 Rate Blood Pressure 138/78 Blood Pressure 131/80 [Left] O2 Sat by Pulse 94 91 Oximetry 04/08/20 11:34 Temperature 97.9 F Pulse Rate 62 Respiratory 18 Rate Blood Pressure 138/78 Blood Pressure [Left] O2 Sat by Pulse 96 Oximetry Constitutional: no acute distress, asleep Eyes: non-icteric ENT: oropharynx moist, other (extubated) Neck: supple, no lymphadenopathy, no JVD Effort: normal Ascultation: Right: rales (base), Bilateral: diminished breath sounds Percussion: Bilateral: not dull Cardiovascular: regular rate and rhythm, other (S1,S2, no murmurs, gallops or rubs) Gastrointestinal: normoactive bowel sounds, soft, non-tender, non-distended Integumentary: normal Extremities: no cyanosis, no edema, pink and warm, pulses normal, no ischemia or petechiae Neurologic: normal mental status, pupils equal and round, CN II-XII normal, motor strength normal and Psychiatric: mood appropriate, affect normal CBC and BMP: 04/06/20 03:23 04/06/20 03:23 ABG, PT/INR, D-dimer: ABG ABG pH 7.379 pH Units (7.350-7.450) 04/05/20 04:24 ABG pCO2 37.0 mm Hg 04/05/20 04:24 ABG pO2 126.6 mm Hg (80.0-90.0) H 04/05/20 04:24 ABG O2 Saturation 98.4 % (95.0-99.0) 04/05/20 04:24 PT/INR, D-dimer PT 13.8 Sec. (12.2-14.9) 04/04/20 15:34 INR 1.05 (0.87-1.13) 04/04/20 15:34 Abnormal lab findings: Abnormal Labs 04/04/20 04/04/20 04/04/20 15:34 15:34 15:34 WBC 14.2 H MCH RDW 18.0 H Lymph % (Auto) 4.5 L Lymph # 0.6 L Seg Neutrophils % 89.6 H Seg Neutrophils # 12.7 H ABG pH ABG pO2 ABG Base Excess ABG Hemoglobin VBG pH Oxyhemoglobin Chloride Carbon Dioxide 20 L Creatinine 1.4 H Glucose 186 H POC Glucose Lactic Acid 5.90 H* Calcium 8.3 L Ammonia Total Creatine Kinase CK-MB (CK-2) Albumin 3.8 L Salicylates Acetaminophen Phenytoin Valproic Acid 04/04/20 04/04/20 04/04/20 15:34 15:34 15:34 WBC MCH RDW Lymph % (Auto) Lymph # Seg Neutrophils % Seg Neutrophils # ABG pH ABG pO2 ABG Base Excess ABG Hemoglobin VBG pH 7.135 L* Oxyhemoglobin Chloride Carbon Dioxide Creatinine Glucose POC Glucose Lactic Acid Calcium Ammonia 142.0 H Total Creatine Kinase 273 H CK-MB (CK-2) 9.8 H Albumin Salicylates Acetaminophen Phenytoin Valproic Acid 04/04/20 04/04/20 04/04/20 15:34 15:34 16:10 WBC MCH RDW Lymph % (Auto) Lymph # Seg Neutrophils % Seg Neutrophils # ABG pH 7.295 L ABG pO2 ABG Base Excess -3.6 L ABG Hemoglobin VBG pH Oxyhemoglobin 92.7 L Chloride Carbon Dioxide Creatinine Glucose POC Glucose Lactic Acid Calcium Ammonia Total Creatine Kinase CK-MB (CK-2) Albumin Salicylates < 0.3 L Acetaminophen < 5.0 L Phenytoin 0.8 L Valproic Acid < 2.8 L 04/04/20 04/05/20 04/05/20 16:13 04:24 10:05 WBC 17.9 H MCH RDW 17.1 H Lymph % (Auto) Lymph # Seg Neutrophils % Seg Neutrophils # ABG pH ABG pO2 126.6 H ABG Base Excess -3.4 L ABG Hemoglobin 10.8 L VBG pH Oxyhemoglobin Chloride Carbon Dioxide Creatinine Glucose POC Glucose 125 H Lactic Acid Calcium Ammonia Total Creatine Kinase CK-MB (CK-2) Albumin Salicylates Acetaminophen Phenytoin Valproic Acid 04/05/20 04/06/20 04/06/20 10:05 03:23 03:23 WBC 12.5 H MCH 27 L RDW 16.9 H Lymph % (Auto) 9.3 L Lymph # Seg Neutrophils % 82.9 H Seg Neutrophils # 10.4 H ABG pH ABG pO2 ABG Base Excess ABG Hemoglobin VBG pH Oxyhemoglobin Chloride 107.2 H Carbon Dioxide 21 L Creatinine 0.6 L Glucose POC Glucose Lactic Acid Calcium 8.0 L Ammonia Total Creatine Kinase CK-MB (CK-2) Albumin Salicylates Acetaminophen Phenytoin Valproic Acid 04/06/20 03:23 WBC MCH RDW Lymph % (Auto) Lymph # Seg Neutrophils % Seg Neutrophils # ABG pH ABG pO2 ABG Base Excess ABG Hemoglobin VBG pH Oxyhemoglobin Chloride Carbon Dioxide Creatinine Glucose POC Glucose Lactic Acid Calcium Ammonia 80.0 H Total Creatine Kinase CK-MB (CK-2) Albumin Salicylates Acetaminophen Phenytoin Valproic Acid Chest x-ray: report reviewed, image reviewed Additional Studies: CHEST 1 VIEW 04/06/20 INDICATION: follow up respiratory failure. COMPARISON: One day prior FINDINGS: Support devices: The patient has been extubated. Heart: Normal. Lungs/Pleura: There are low lung volumes with mild bibasilar opacities. No significant effusion, no pneumothorax. IMPRESSION: 1. No significant change after extubation. Allied health notes reviewed: nursing
--- NOTE | 2020-04-08 14:28 | Progress Note ---
Subjective - Reason for Consult Consult date: 04/08/20 Reason for consult: MHE Requesting physician: FAIZA DICKINSON - Chief Complaint Chief complaint: PSYCH PROGRESS NOTE Patient seen at bedside this AM, she reports sleeping very good, says the medication did help her sleep. She describes having a good mood, denies SI, HI and AVH . Patient sister called while I was in the room, she was provided news about her partner who had on OD by her sister, patient was sad, expressed grieve and endorses voluntary drug rehab. She denies SI, HI or AVH and would like be discharged to family MENTAL STATUS EXAMINATION General Appearance and Behavior: Age appropriate, good hygiene, wearing appropriate clothes, lying in bed, poor eye contact, cooperative and polite Cooperation: Cooperative Psychomotor Behavior: unremarkable and within normal limits Mood: Sad Affect and affective range: depressed, grieve Thought Process: Fluent/Logical Thought Content: Within reality Speech: Normal volume, Regular rate and rhythm Intellectual Functioning: Average Suicidal Ideation: Denies SI Homicidal Ideation: Denies HI Impulse Control: Unimpaired Insight and Judgment: Limited insight and judgment Memory: Normal Attention: Normal Orientation: Alert, oriented Assessment and Plan - Psychiatric problem (1) MDD (major depressive disorder) Current Visit: Yes Status: Acute (2) Substance use disorder Current Visit: Yes Status: Acute (3) Methamphetamine use disorder, severe, dependence Current Visit: Yes Status: Acute (4) Bipolar 1 disorder, depressed, moderate Current Visit: Yes Status: Acute RECOMMENDATIONS Per Collateral: Discharge plan discussed with family, family in agreement and provided with outpatient substance abuse detox programs. MEDICATIONS Risks, benefits and alternatives of medications discussed with the patient, questions answered and consent obtained from patient. PSYCHOTHERAPY: Supportive psychotherapy provided MEDICAL: Per primary team DELIRIUM PRECAUTIONS: Please re-orient patient frequently, keep lights on during the day, and minimize benzodiazepines and opiates as these medications could worsen patient's confusion. MARINE EQUIPMENT ENGINEER: Yes recommended DISPOSITION: no acute inpatient psychiatric hospitalization recommended at this time. LEGAL STATUS: 1013 rescinded FOLLOW-UP: Will sign off Thank you for the consult. Please contact with any questions and/or concerns. Mental Status Exam - Vital signs Last Vital Signs Temp 97.9 F 04/08/20 11:34 Pulse 62 04/08/20 11:34 Resp 18 04/08/20 11:34 BP 138/78 04/08/20 11:34 Pulse Ox 96 04/08/20 11:34 Assessment and Plan - Patient Problems (1) MDD (major depressive disorder) Current Visit: Yes Status: Acute (2) Substance use disorder Current Visit: Yes Status: Acute (3) Methamphetamine use disorder, severe, dependence Current Visit: Yes Status: Acute (4) Bipolar 1 disorder, depressed, moderate Current Visit: Yes Status: Acute
[2020-04-08] MEDS ORDERED: FAMOTIDINE 20 MG TAB PO SCH (22:00)
== END 2020-04-08 17:40 | disposition home or self-care (01) | DRG 871 ==
LOC: ED 14:16 → EEVIPCON 17:30 → CC1 17:30 → 3A 04-06 12:51
PROVIDERS: ADMIT Internal Medicine; ATTEND Internal Medicine
PROC: 0BH17EZ Insertion of Endotracheal Airway into Trachea, Via Natural or Artificial Opening (ICD-10-PCS; principal; 2020-04-04)
PROC: 5A1935Z Respiratory Ventilation, Less than 24 Consecutive Hours (ICD-10-PCS; 2020-04-04)
PROC: 3E0234Z Introduction of Serum, Toxoid and Vaccine into Muscle, Percutaneous Approach (ICD-10-PCS; 2020-04-05)
PROC: 4A033R1 Measurement of Arterial Saturation, Peripheral, Percutaneous Approach (ICD-10-PCS; 2020-04-05)
DX: A41.9 Sepsis, unspecified organism (principal); N17.0 Acute kidney failure with tubular necrosis; J96.01 Acute respiratory failure with hypoxia; R65.21 Severe sepsis with septic shock; J69.0 Pneumonitis due to inhalation of food and vomit; G93.40 Encephalopathy, unspecified; E87.2 Acidosis; F17.213 Nicotine dependence, cigarettes, with withdrawal; E72.20 Disorder of urea cycle metabolism, unspecified; F15.20 Other stimulant dependence, uncomplicated; J45.909 Unspecified asthma, uncomplicated; M19.90 Unspecified osteoarthritis, unspecified site; G40.909 Epilepsy, unspecified, not intractable, without status epilepticus; R68.0 Hypothermia, not associated with low environmental temperature; E16.2 Hypoglycemia, unspecified; F29 Unspecified psychosis not due to a substance or known physiological condition; N18.9 Chronic kidney disease, unspecified; F31.9 Bipolar disorder, unspecified; Z23 Encounter for immunization; Z87.442 Personal history of urinary calculi
CPT/HCPCS: 36415; 36600; 70450; 71045; 72125; 80048; 80053; 80164; 80185; 80307; 80320; 81001; 82140; 82550; 82553; 82803; 82805; 82962; 83735; 84439; 84443; 84484; 84703; 85025; 85027; 85610; 85730; 87040; 87070; 87205; 93005; 94002; 94003; 94760; G0378; G0480; J1644; J1953; J1956; J2543; J2704; J3010; J7030; J7042

== ENCOUNTER 2022-02-24 01:03 | Emergency (ER) | payer SELFPAY ==
[2022-02-24 09:19] LABS: Basophils # (Auto) 0.1 K/mm3 (0.0-0.1); Basophils % (Auto) 0.6 % (0.0-1.8); Eosinophils % (Auto) 0.3 % (0.0-4.3); Hematocrit 41.9 % (30.3-42.9); Hemoglobin 13.9 gm/dl (10.1-14.3); Lymphocytes # (Auto) 1.5 K/mm3 (1.2-5.4); Lymphocytes % (Auto) 12.1 % (13.4-35.0); Mean Corpuscular HGB Conc 33 % (30-34); Mean Corpuscular Volume 81 fl (79-97); Monocytes # (Auto) 0.8 K/mm3 (0.0-0.8); Monocytes % (Auto) 6.4 % (0.0-7.3); Platelet Count 264 K/mm3 (140-440); Red Blood Count 5.17 M/mm3 (3.65-5.03); Red Cell Distribution Width 15.3 % (13.2-15.2)
[2022-02-24] MEDS ORDERED: SODIUM CHLORIDE 0.9% 1000 ML 1,000 ML IV ONE ×2 (09:21→10:24)
[2022-02-24] MEDS ORDERED: ONDANSETRON 4 MG/2 ML INJ IV ONE ×2 (09:21→10:24)
[2022-02-24] MEDS ORDERED: KETOROLAC 30 MG/1 ML INJ IV ONE (09:21)
[2022-02-24 09:40] LABS: Alanine Aminotransferase 12 units/L (7-56); Albumin 3.7 g/dL (3.9-5); BUN/Creatinine Ratio 11; Blood Urea Nitrogen 10 mg/dL (7-17); Calcium 9.1 mg/dL (8.4-10.2); Hemolysis Index 119
[2022-02-24 09:41] LABS: Bilirubin,Direct < 0.2 mg/dL (0-0.2)
--- NOTE | 2022-02-24 09:55 | Cat Scan Report ---
CT ABDOMEN AND PELVIS WITHOUT CONTRAST HISTORY: Abdominal Pain COMPARISON: None TECHNIQUE: Routine abdominal and pelvic CT exam performed without contrast. Lack of intravenous cont rast limits evaluation of the vascular and solid organs.. All CT scans at this location are performed using CT dose reduction for ALARA by means of automated exposure control. FINDINGS: CT ABDOMEN: Lung Bases: No significant abnormality. Liver: No significant abnormality. Biliary: Cholelithiasis without acute cholecystitis Spleen: No significant abnormality. Unenlarged. Pancreas: No significant abnormality. Adrenals: No significant abnormality. Kidneys: Mild right hydronephrosis due to 4 mm stone in the right ureteropelvic junction. Lymphatics: No lymphadenopathy. Vasculature: No significant abnormality. Bowel/Peritoneum: No significant abnormality. No free air. No free fluid. Normal appendix. CT PELVIC: : No significant abnormality. Lymphatics: No lymphadenopathy. Osseous Structures: No aggressive appearing osseous lesions. Additional Findings: None IMPRESSION: 1. Mild right hydronephrosis due to 4 mm right ureteropelvic junction stone. 2. Cholelithiasis without evidence of acute cholecystitis. Signer Name: Bret Edwards MD Signed: 02/24/2022 9:51 AM Workstation Name: [id number]
[2022-02-24 10:23] LABS: Bilirubin,Urine NEG (Negative); Blood,Urine SM (Negative); Color,Urine Yellow (Yellow); Mucus,Urine FEW /HPF; Urobilinogen,Urine < 2.0 mg/dL (<2.0)
[2022-02-24] MEDS ORDERED: cefTRIAXone/NS 1 GM/50 ML 1 GM/50 ML BAG IV ONE (10:24)
[2022-02-24] MEDS ORDERED: MORPHINE 4 MG/1 ML INJ IV ONE (10:24)
--- NOTE | 2022-02-24 10:25 | Emergency Department Report ---
ED Abdominal Pain HPI - General Chief Complaint: Abdominal Pain Stated Complaint: RIGHT FLANK PAIN PUI?: No Time Seen by Provider: 02/24/22 07:56 Source: EMS Mode of arrival: Ambulatory Limitations: No Limitations - History of Present Illness Initial Comments: Patient is a 42-year-old female that comes to the ER with right flank pain. She has a history of kidney stones. She states this is how her kidney stone started prior. She denies fever or chills. Endorses hematuria. Denies dysuria. Denies vaginal discharge. MD Complaint: abdominal pain -: Sudden, days(s) Location: R flank Radiation: none Migration to: no migration Severity: severe Severity scale (0 -10): 10 Quality: cramping, stabbing, aching Consistency: intermittent Improves With: nothing Worsens With: nothing Associated Symptoms: denies other symptoms, hematuria. denies: nausea, vomiting, diarrhea, fever, chills, constipation, dysuria, hematemesis, hem atochezia, melena, anorexia, syncope - Related Data Previous Rx's Medication Instructions Recorded Last Taken Type Melatonin [Melatonin 5MG TAB] 5 mg PO QHS PRN #7 tablet 04/08/20 Unknown Rx PARoxetine [Paxil] 10 mg PO QDAY #14 tablet 04/08/20 Unknown Rx Ondansetron [Zofran Odt] 4 mg PO Q8HR PRN #10 tab.rapdis 02/24/22 Unknown Rx Tamsulosin [Flomax] 0.4 mg PO QDAY #10 cap 02/24/22 Unknown Rx cephALEXin [Keflex] 500 mg PO Q12HR #20 cap 02/24/22 Unknown Rx traMADoL [Ultram] 50 mg PO Q6HR PRN #10 tablet 02/24/22 Unknown Rx Allergies Allergy/AdvReac Type Severity Reaction Status Date / Time No Known Allergies Allergy Unverified 09/29/14 19:48 ED Review of Systems ROS: Stated complaint: RIGHT FLANK PAIN Other details as noted in HPI Comment: All other systems reviewed and negative ED Past Medical Hx - Past Medical History Previous Medical History?: Yes Hx Congestive Heart Failure: No Hx Diabetes: No Hx Renal Disease: Yes (Pyelonephritis, hydronephrosis, left kidney/ureteral stone) Hx Arthritis: Yes (hands) Hx Seizures: Yes Hx Psychiatric Treatment: Yes Hx Asthma: Yes (childhood asthma) Additional medical history: Prior kidney infections - Surgical History Past Surgical History?: Yes Additional Surgical History: kidney stent - Family History Family history: no significant - Social History Smoking Status: Never Smoker Substance Use Type: None - Medications Home Medications: Home Medications Medication Instructions Recorded Confirmed Last Taken Type Melatonin [Melatonin 5MG TAB] 5 mg PO QHS PRN #7 tablet 04/08/20 Unknown Rx PARoxetine [Paxil] 10 mg PO QDAY #14 tablet 04/08/20 Unknown Rx Ondansetron [Zofran Odt] 4 mg PO Q8HR PRN #10 tab.rapdis 02/24/22 Unknown Rx Tamsulosin [Flomax] 0.4 mg PO QDAY #10 cap 02/24/22 Unknown Rx cephALEXin [Keflex] 500 mg PO Q12HR #20 cap 02/24/22 Unknown Rx traMADoL [Ultram] 50 mg PO Q6HR PRN #10 tablet 02/24/22 Unknown Rx ED Physical Exam - General Limitations: No Limitations General appearance: alert, in no apparent distress - Head Head exam: Present: atraumatic, normocephalic - Eye Eye exam: Present: normal appearance - ENT ENT exam: Present: mucous membranes moist - Neck Neck exam: Present: normal inspection - Respiratory Respiratory exam: Present: normal lung sounds bilaterally. Absent: respiratory distress - Cardiovascular Cardiovascular Exam: Present: regular rate, normal rhythm. Absent: systolic murmur, diastolic murmur, rubs, gallop - GI/Abdominal GI/Abdominal exam: Present: soft, normal bowel sounds - Extremities Exam Extremities exam: Present: normal inspection - Back Exam Back exam: Present: normal inspection - Neurological Exam Neurological exam: Present: alert, oriented X3 - Psychiatric Psychiatric exam: Present: normal affect, normal mood - Skin Skin exam: Present: warm, dry, intact, normal color. Absent: rash ED Course Vital Signs 02/24/22 02:03 Temperature 98.1 F Pulse Rate 72 Respiratory 18 Rate Blood Pressure 182/105 O2 Sat by Pulse 100 Oximetry ED Medical Decision Making - Lab Data Result diagrams: 02/24/22 08:58 02/24/22 08:58 - Radiology Data Radiology results: report reviewed, image reviewed see report - Medical Decision Making Lab Results 02/24/22 02/24/22 02/24/22 Range/Units 08:58 08:58 08:58 WBC 12.5 H (4.5-11.0) K/mm3 RBC 5.17 H (3.65-5.03) M/mm3 Hgb 13.9 (10.1-14.3) gm/dl Hct 41.9 (30.3-42.9) % MCV 81 (79-97) fl MCH 27 L (28-32) pg MCHC 33 (30-34) % RDW 15.3 H (13.2-15.2) % Plt Count 264 (140-440) K/mm3 Lymph % (Auto) 12.1 L (13.4-35.0) % Waller % (Auto) 6.4 (0.0-7.3) % Eos % (Auto) 0.3 (0.0-4.3) % Baso % (Auto) 0.6 (0.0-1.8) % Lymph # (Auto) 1.5 (1.2-5.4) K/mm3 Waller # (Auto) 0.8 (0.0-0.8) K/mm3 Eos # (Auto) 0.0 (0.0-0.4) K/mm3 Baso # (Auto) 0.1 (0.0-0.1) K/mm3 Seg Neutrophils % 80.6 H (40.0-70.0) % Seg Neutrophils # 10.1 H (1.8-7.7) K/mm3 Sodium 133 L (137-145) mmol/L Potassium 4.7 (3.6-5.0) mmol/L Chloride 100.2 (98-107) mmol/L Carbon Dioxide 19 L (22-30) mmol/L Anion Gap 19 mmol/L BUN 10 (7-17) mg/dL Creatinine 0.9 (0.6-1.2) mg/dL Estimated GFR > 60 ml/min BUN/Creatinine Ratio 11 % Glucose 94 (65-100) mg/dL Calcium 9.1 (8.4-10.2) mg/dL Total Bilirubin 1.00 (0.1-1.2) mg/dL Direct Bilirubin < 0.2 (0-0.2) mg/dL Indirect Bilirubin 0.8 mg/dL AST 22 (5-40) units/L ALT 12 (7-56) units/L Alkaline Phosphatase 86 (35-129) units/L Total Protein 7.2 (6.3-8.2) g/dL Albumin 3.7 L (3.9-5) g/dL Albumin/Globulin Ratio 1.1 % Lipase 89 H (13-60) units/L HCG, Qual Negative (Negative) Urine Color (Yellow) Urine Turbidity (Clear) Urine pH (5.0-7.0) Ur Specific Grid[place] (1.003-1.030) Urine Protein (Negative) mg/dL Urine Glucose (UA) (Negative) mg/dL Urine Ketones (Negative) mg/dL Urine Blood (Negative) Urine Nitrite (Negative) Urine Bilirubin (Negative) Urine Urobilinogen (<2.0) mg/dL Ur Leukocyte Esterase (Negative) Urine WBC (Auto) (0.0-6.0) /HPF Urine RBC (Auto) (0.0-6.0) /HPF U Epithel Cells (Auto) (0-13.0) /HPF Urine Mucus /HPF 02/24/22 Range/Units 09:50 WBC (4.5-11.0) K/mm3 RBC (3.65-5.03) M/mm3 Hgb (10.1-14.3) gm/dl Hct (30.3-42.9) % MCV (79-97) fl MCH (28-32) pg MCHC (30-34) % RDW (13.2-15.2) % Plt Count (140-440) K/mm3 Lymph % (Auto) (13.4-35.0) % Waller % (Auto) (0.0-7.3) % Eos % (Auto) (0.0-4.3) % Baso % (Auto) (0.0-1.8) % Lymph # (Auto) (1.2-5.4) K/mm3 Waller # (Auto) (0.0-0.8) K/mm3 Eos # (Auto) (0.0-0.4) K/mm3 Baso # (Auto) (0.0-0.1) K/mm3 Seg Neutrophils % (40.0-70.0) % Seg Neutrophils # (1.8-7.7) K/mm3 Sodium (137-145) mmol/L Potassium (3.6-5.0) mmol/L Chloride (98-107) mmol/L Carbon Dioxide (22-30) mmol/L Anion Gap mmol/L BUN (7-17) mg/dL Creatinine (0.6-1.2) mg/dL Estimated GFR ml/min BUN/Creatinine Ratio % Glucose (65-100) mg/dL Calcium (8.4-10.2) mg/dL Total Bilirubin (0.1-1.2) mg/dL Direct Bilirubin (0-0.2) mg/dL Indirect Bilirubin mg/dL AST (5-40) units/L ALT (7-56) units/L Alkaline Phosphatase (35-129) units/L Total Protein (6.3-8.2) g/dL Albumin (3.9-5) g/dL Albumin/Globulin Ratio % Lipase (13-60) units/L HCG, Qual (Negative) Urine Color Yellow (Yellow) Urine Turbidity Clear (Clear) Urine pH 5.0 (5.0-7.0) Ur Specific [place] 1.023 (1.003-1.030) Urine Protein 30 mg/dl (Negative) mg/dL Urine Glucose (UA) Neg (Negative) mg/dL Urine Ketones 20 (Negative) mg/dL Urine Blood Sm (Negative) Urine Nitrite Neg (Negative) Urine Bilirubin Neg (Negative) Urine Urobilinogen < 2.0 (<2.0) mg/dL Ur Leukocyte Esterase Neg (Negative) Urine WBC (Auto) 6.0 (0.0-6.0) /HPF Urine RBC (Auto) 12.0 (0.0-6.0) /HPF U Epithel Cells (Auto) 4.0 (0-13.0) /HPF Urine Mucus Few /HPF Vital Signs 02/24/22 02:03 Temperature 98.1 F Pulse Rate 72 Respiratory 18 Rate Blood Pressure 182/105 O2 Sat by Pulse 100 Oximetry UA noted. Preg negative Labs noted CT noted 2 L normal saline, Zofran x2, morphine x1. Patient obtained relief. Patient has acute on chronic leukocytosis. Creatinine normal. Patient voiding without difficulty. Patient being discharged home with discharge plan of care including diet, activity, medications and follow-up. She verbalizes understanding of discharge plan of care. On discharge exam she is ambulatory, taking p.o. and in no acute distress. - Differential Diagnosis ro uti/k stone/ g stone Critical care attestation.: If time is entered above; I have spent that time in minutes in the direct care of this critically ill patient, excluding procedure time. ED Disposition Clinical Impression: Kidney stone, Gall stone Disposition: 01 HOME / SELF CARE / HOMELESS Is pt being admited?: No Does the pt Need Aspirin: No Condition: Stable Instructions: Kidney Stones, Abdominal Pain (ED) Additional Instructions: Medications as ordered today Follow-up with urology. I have given you referral below. You should be seen this week. Child him he was seen in the ER and they can access imaging. Stay well-hydrated with water Motrin or Tylenol can be used for mild pain Diet and activity as tolerated Prescriptions: Tamsulosin [Flomax] 0.4 mg PO QDAY #10 cap cephALEXin [Keflex] 500 mg PO Q12HR #20 cap traMADoL [Ultram] 50 mg PO Q6HR PRN #10 tablet PRN Reason: Pain Ondansetron [Zofran Odt] 4 mg PO Q8HR PRN #10 tab.rapdis PRN Reason: Vomiting Referrals: JAMIE KIRK MD [Staff Physician] - 3-5 Days Time of Disposition: 11:08
[2022-02-24 13:40] VITALS: BP 127/72
== END 2022-02-24 14:00 | disposition home or self-care (01) ==
LOC: ED 01:03
DX: N20.2 Calculus of kidney with calculus of ureter (principal); K80.80 Other cholelithiasis without obstruction; J45.909 Unspecified asthma, uncomplicated
CPT/HCPCS: 36415; 74176; 80048; 80076; 81001; 83690; 84703; 85025; 96361; 96365; 96375; 96376; 99284; J0696; J1885; J2270; J2405; J7030